=== PATIENT | female | born 1980 | race Caucasian/White ===

== ENCOUNTER 2018-08-24 01:04 | Outpatient (CLI) | payer MEDICAID, SELFPAY ==
[2018-08-24 11:02] LABS: Hemoglobin A1C 5.6 % (4.5-6.2)
[2018-08-24 11:13] LABS: TSH (W/Ref FT4) 0.02 uIU/mL (0.358-3.74)
[2018-08-24 11:42] LABS: FREE T4 1.44 ng/dL (0.76-1.46)
== END 2018-08-24 01:24 ==
PROVIDERS: PCP Family Medicine; Visit Provider Family Medicine
DX: E03.9 Hypothyroidism, unspecified (principal); E74.39 Other disorders of intestinal carbohydrate absorption
CPT/HCPCS: 36415; 83036; 84439; 84443

== ENCOUNTER 2019-01-31 09:53 | Emergency (ER) | payer OTHER, SELFPAY ==
[2019-01-31 09:58] VITALS: BP 135/82; PULSE 90; RESP 20; TEMP 37.2; O2SAT 94
--- NOTE | 2019-01-31 10:18 | DI.RAD_ITS ---
SYMPTOMS/DIAGNOSIS: PAIN, FELL 1 WK AGO, TENDER TO PALPATION DISTAL LATERAL FEMUR LEFT FEMUR: Four views. No acute fracture or dislocation is seen. The soft tissues are unremarkable. IMPRESSION: No acute abnormality. LEFT HIP AND PELVIS: Two views. No acute fracture or dislocation is seen. The sacroiliac joints and symphysis pubis appear intact. Post surgical changes seen are seen in the lumbosacral spine. The soft tissues are unremarkable. IMPRESSION: No acute abnormality.
--- NOTE | 2019-01-31 10:24 | ED.GENADUL_ITS ---
Discharge Plan Disposition Patient Disposition: HOME Discharge Details Chief Complaint: Orthopedic Clinical Impression: Muscle strain of left lower extremity, Fall due to ice or snow Primary Care Provider: Vickey Chandra ED Provider: John Solo Home Meds and New Rx's Prescriptions: Continued trazodone 100 mg tablet 100 mg PO HS Qty: 30 RF: 2 buspirone 15 mg tablet 7.5 mg PO BID Qty: 30 RF: 2 naproxen sodium [Aleve] 220 mg capsule 440 mg PO DAILY RF: 0 omeprazole 20 MG capsule,delayed release(DR/EC) 20 mg PO DAILY Qty: 90 RF: 3 fluticasone propion-salmeterol [Advair Diskus] 1 EACH blister with device 1 puff Inhalation BID Qty: 60 RF: 5 epinephrine 0.3 MG/SYR auto-injector 0.3 mg IJ DIRECTED Qty: 1 RF: 0 levothyroxine 75 mcg tablet 75 mcg PO .Daily except Monday Qty: 90 RF: 3 levothyroxine [Synthroid] 200 mcg tablet 200 mcg PO .Daily except Monday Qty: 90 RF: 3 norethindrone acetate 5 mg tablet 5 mg PO DAILY Qty: 60 RF: 5 Discharge Instructions Instructions: Muscle Strain (ED), Fall Prevention (ED) Additional Instructions: Please continue to take Aleve -dose according to label. Please take Tylenol over the counter - dose according to label. Please contact your primary care physician to arrange follow-up. It may be beneficial for you to be seen by physical therapy as referred by your PCP. Return to the ER for any worsening or new concerning symptoms. Referrals: Vickey Chandra [Primary Care Provider] - Medical Decision Making 10:30 --38-year-old female presents 1 week after mechanical slip and fall on ice with left thigh pain. She is tender along her lateral thigh and has pain with abduction, suspect IT band injury or hematoma. Consider femur fracture. --X-ray of pelvis, hip and femur left interpreted by radiology: Negative. Suspect IT band injury. Patient was given Wilfred wrap and crutches. She was encouraged to follow-up with her PCP and to continue with referral to PT therapy. Usual and customary discharge instructions were provided. HPI General Mode of arrival: ambulatory . Date/Time Provider Initiated Documentation: 01/31/19 10:03 . Limitations to Documentation: no limitations . Information obtained by: patient and family . HPI Narrative: 38-year-old female presents 1 week after mechanical slip and fall on ice with chief complaint of leg pain. Patient notes that she fell on her buttock and left side. Pain is been in her left thigh laterally. Pain is moderate to severe and worse with certain movements and ambulation. She has associated tingling in all of the toes of her left foot as well as some bruising of her anterior medial thigh. She denies bowel or bladder dysfunction. No back pain. Patient did hit her head during this fall, did not lose consciousness, has not had headache. She did see her primary care physician for this pain earlier this week and was diagnosed with muscle strain and was encouraged to splint her knee and take aleve. She has been taking aleve and pain persists. Related Data Home Medications Medication Instructions Recorded Confirmed omeprazole 20 mg PO DAILY #90 tab-cap 04/18/18 01/31/19 epinephrine 0.3 mg IJ DIRECTED #1 kit 05/22/18 01/31/19 fluticasone propion-salmeterol 1 puff INHALATION BID #60 disk 05/22/18 01/31/19 [Advair Diskus] naproxen sodium 220 mg capsule 440 mg PO DAILY cap 08/21/18 01/31/19 levothyroxine 200 mcg tablet 200 mcg PO .Daily except Monday08/31/18 01/31/19 #90 tab-cap levothyroxine 75 mcg tablet 75 mcg PO .Daily except Monday #90 08/31/18 01/31/19 tab-cap norethindrone acetate 5 mg tablet 5 mg PO DAILY #60 tab-cap 08/31/18 01/31/19 buspirone 15 mg tablet 7.5 mg PO BID #30 tab 12/25/18 01/31/19 trazodone 100 mg tablet 100 mg PO HS #30 tab 12/25/18 01/31/19 Previous Rx's Medication Instructions Recorded omeprazole 20 mg PO DAILY #90 tab-cap 04/18/18 epinephrine 0.3 mg IJ DIRECTED #1 kit 05/22/18 fluticasone propion-salmeterol 1 puff INHALATION BID #60 disk 05/22/18 [Advair Diskus] levothyroxine 200 mcg tablet 200 mcg PO .Daily except Monday08/31/18 #90 tab-cap levothyroxine 75 mcg tablet 75 mcg PO .Daily except Monday #90 08/31/18 tab-cap norethindrone acetate 5 mg tablet 5 mg PO DAILY #60 tab-cap 08/31/18 buspirone 15 mg tablet 7.5 mg PO BID #30 tab 12/25/18 trazodone 100 mg tablet 100 mg PO HS #30 tab 12/25/18 Allergies Allergy/AdvReac Type Severity Reaction Status Date / Time hornet venom Allergy Severe Anaphylaxsi Unverified 01/31/19 10:01 s Opioids - Morphine Analogues Allergy Severe hives Verified 01/31/19 10:01 aspirin Allergy Hives Unverified 01/31/19 10:01 hydrocodone bitartrate Allergy Skin Rash Unverified 01/31/19 10:01 [From Vicodin] General Stated Complaint: Orthopedic MADYSON: 3 Review of Systems Musculoskeletal Reports as per HPI Neurologic Reports as per HPI PFSH Medical History Chronic lumbar pain Depression Hypothyroidism Obese Tobacco use Urinary incontinence Surgical History Appendectomy Biopsy Cholecystectomy Dilation and curettage (05/27/05) Ligation of fallopian tube Oophrectomy, Right Spinal Fusion Family History Mother Personal history of malignant neoplasm Sister Personal history of malignant neoplasm Mental disorder Grandfather Diabetes Hyperlipidemia Grandmother Personal history of malignant neoplasm Father Personal history of malignant neoplasm Grandfather No problems noted. Grandmother No problems noted. 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 pets and animals: Yes pets and animals: cat(s) frequency: 1-2 times per week duration: 15-30 minutes/day Smoking and Tabacco status: Former Tobacco Use quit date: 03/30/18 pack-years: 15 Pasive smoking exposure: No alcohol intake: current alcohol intake frequency: holidays/special occasions only substance use type: does not use special viki needs: No Seatbelt use: always Helmet use: Yes helmet use: always Female Reproductive History Menstrual control method: permanent sterilization History History 4 Para Hx # Term Pregnancies 4 Multiple births Hx # Pregnancies Ectopic pregnancies AB induced Hx Number of Living Children AB spontaneous Exam Const General: cooperative and no acute distress HENMT Head: normocephalic and atraumatic Mouth: moist mucous membranes Eyes Conjunctivae: normal conjunctivae Sclera: normal sclerae EOM: EOM intact bilaterally Neck Neck: trachea midline and supple Resp Auscultation: clear to auscultation bilaterally, no rales, no rhonchi and no wheezes Cardio Jugular venous pressure: no JVD Rate: regular rate and not tachycardic Rhythm: regular rhythm GI Palpation: soft, not firm, no guarding, no masses, not rigid and nontender Back/Spine/Pelvis Thoracic/Lumbar Spine: No thoracic spinal tenderness and No lumbar spinal tenderness Skin General skin exam: no rashes or lesions noted Neuro General: alert, awake, oriented x3, tone normal and other (distal LLE sensation intact, no saddle anesth) Extrem General: no edema Left lower extremity: normal capillary refill, hip/thigh (ttp mid to distal thigh, dime sized bruise mid ant thigh) and knee Details: other (no effusion); no tenderness and no swelling; abnormal ROM (pain with hyperadduction) Course Vital Signs Temperature 37.2 C 01/31/19 09:58 Pulse 90 01/31/19 09:58 Respiratory Rate 20 01/31/19 09:58 Blood Pressure 135/82 01/31/19 09:58 Pulse Oximetry 94 L 01/31/19 09:58 Temperature 37.2 C 01/31/19 09:58 Temperature Source Tympanic 01/31/19 09:58 Pulse 90 01/31/19 09:58 Respiratory Rate 20 01/31/19 09:58 Respiratory Effort Non-Labored 01/31/19 09:58 Blood Pressure 135/82 01/31/19 09:58 Blood Pressure Position Sitting 01/31/19 09:58 Pulse Oximetry 94 L 01/31/19 09:58 Pain Level 9 01/31/19 10:01
[2019-01-31] MEDS: Acetaminophen 325 MG TAB (10:38)
[2019-01-31 11:23] VITALS: BP 135/82; PULSE 90; RESP 20; TEMP 37.2; O2SAT 94
== END 2019-01-31 11:24 | disposition home or self-care (01) ==
PROVIDERS: Emergency Provider Student in an Organized Health Care Education/Training Program; PCP Family Medicine
DX: S86.812A Strain of other muscle(s) and tendon(s) at lower leg level, left leg, initial encounter (principal); R20.2 Paresthesia of skin; W00.0XXA Fall on same level due to ice and snow, initial encounter
CPT/HCPCS: 73552; 99284; 73502; E0114

== ENCOUNTER 2020-01-17 02:41 | Outpatient (CLI) | payer SELFPAY ==
--- NOTE | 2020-01-17 07:45 | DI.CT_ITS ---
EXAM: CT HEAD WO CLINICAL HISTORY: headache for one week; frontal,r51. TECHNIQUE: Imaging Protocol: Axial computed tomography images with coronal and sagittal reformatted images were created and reviewed Noncontrast COMPARISON: No exams were available for comparison FINDINGS: Ventricles and Extra axial spaces: Normal in size and morphology for the patient's age. Hemorrhage: None. Cerebral parenchyma: Normal. Midline shift: None. Brainstem/Cerebellum: Normal. Calvarium: Normal. Visualized Paranasal sinuses/Mastoids: Clear. IMPRESSION: Normal CT of the head. RADIATION DOSE DELIVERED: DATA REPOSITORY: All CT scans at this facility are submitted to the National Radiology Data Registry (NRDR) Dose Index Registry (DIR) with the [employer] (A[employer]). RADIATION OPTIMIZATION: All CT scans at this facility use at least one of these dose optimization te chniques: automated exposure control; mA and/or kV adjustment per patient size (includes targeted exa ms where dose is matched to clinical indication); or iterative reconstruction.
== END 2020-01-17 03:01 ==
PROVIDERS: PCP Family Medicine; Visit Provider Family Medicine
DX: R51 Headache (principal)
CPT/HCPCS: 70450

== ENCOUNTER 2020-02-18 16:17 | Emergency (ER) | payer MEDICAID, SELFPAY ==
[2020-02-18 16:24] VITALS: BP 118/86; PULSE 87; RESP 20; TEMP 36.6; O2SAT 98
--- NOTE | 2020-02-18 16:50 | W.ED.GENAD ---
Discharge Plan Disposition Patient Disposition: HOME Condition: Stable Discharge Details Chief Complaint: RespSymp Clinical Impression: Cough Primary Care Provider: Vickey Chandra ED Provider: Gigi Hess Home Meds and New Rx's Prescriptions: Continued buspirone 15 mg tablet 7.5 mg PO BID Qty: 30 RF: 2 acetaminophen [Tylenol Arthritis Pain] 650 mg tablet extended release 1,300 mg PO BID-TID RF: 0 naproxen sodium [Aleve] 220 mg capsule 440 mg PO BID-TID RF: 0 epinephrine 0.3 MG/SYR auto-injector 0.3 mg IJ DIRECTED Qty: 1 RF: 0 omeprazole 20 mg capsule,delayed release(DR/EC) 20 mg PO DAILY Qty: 90 RF: 3 levothyroxine 75 mcg tablet 75 mcg PO .Daily except Monday Qty: 90 RF: 3 levothyroxine [Synthroid] 200 mcg tablet 200 mcg PO .Daily except Monday Qty: 90 RF: 3 Discharge Instructions Instructions: Acute Cough (ED) Additional Instructions: At this time he has been offered a medical screening examination here in the ER. No clear indication for antibiotic therapy. I have set you up for coronavirus testing tomorrow as an outpatient through our tent system. I have filled out the appropriate paperwork and they should be contacting you tomorrow for testing. Please follow their instructions. At this time you did not meet criteria for admission and will be discharged. Per CDC recommendations we recommend a 14-day quarantine, practicing good handwashing techniques, importance of wearing a mask at all times, and home monitoring and isolation. I recommend contacting your primary care provider by phone tomorrow to discuss outpatient options. Please watch for new or worsening symptoms and return to the ER, but we do ask that you call first as you are pending testing. 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 She has not reached out to her primary care provider. She is specifically requesting testing for the coronavirus. Although she has no recent travel or known exposure, the virus does appear to be community-based at this point. Given she is symptomatic, testing is reasonable. Our testing tent is currently closed, will set the patient up for testing tomorrow. All appropriate paperwork and orders placed. Patient is comfortable with this plan. Patient received her flu shot this year, is currently afebrile. Lungs are clear to auscultation. No clear indication for chest x-ray as pneumonia suspicion is extremely low. Patient comfortable not having a chest x-ray or being tested for the flu. We discussed the importance of handwashing, wearing a mask, self quarantine. A premade vail pending test stand-alone form was given. Patient had no additional questions or concerns. Medical Records Medical records reviewed: Yes I reviewed the patient's medical records. HPI General Mode of arrival: ambulatory. Date/Time Provider Initiated Documentation: 02/18/20 16:28. Limitations to Documentation: no limitations. Information obtained by: patient. HPI Narrative: This is a 39-year-old female who presents to the ER today requesting to be tested for the coronavirus. She has not had any recent travel or known sick contacts with anyone positive for the coronavirus. She reports approximately 1 hour history of body aches, subjective fever, chills, dry cough. She has a history of headaches, hypothyroidism, depression, chronic back pain. 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 She has not contacted her primary care provider. Related Data Home Medications Medication Instructions Recorded Confirmed epinephrine 0.3 mg IJ DIRECTED #1 kit 05/22/18 02/18/20 buspirone 15 mg tablet 7.5 mg PO BID #30 tab 12/25/18 02/18/20 omeprazole 20 mg capsule,delayed 20 mg PO DAILY #90 tab-cap 07/22/19 02/18/20 release levothyroxine 200 mcg tablet 200 mcg PO .Daily except Monday11/28/19 02/18/20 #90 tab-cap levothyroxine 75 mcg tablet 75 mcg PO .Daily except Monday #90 11/28/19 02/18/20 tab-cap acetaminophen 650 mg 1,300 mg PO BID-TID tab 12/24/19 02/18/20 tablet,extended release naproxen sodium 220 mg capsule 440 mg PO BID-TID cap 12/24/19 02/18/20 Previous Rx's Medication Instructions Recorded epinephrine 0.3 mg IJ DIRECTED #1 kit 05/22/18 buspirone 15 mg tablet 7.5 mg PO BID #30 tab 12/25/18 omeprazole 20 mg capsule,delayed 20 mg PO DAILY #90 tab-cap 07/22/19 release levothyroxine 200 mcg tablet 200 mcg PO .Daily except Monday11/28/19 #90 tab-cap levothyroxine 75 mcg tablet 75 mcg PO .Daily except Monday #90 11/28/19 tab-cap Allergies Allergy/AdvReac Type Severity Reaction Status Date / Time hornet venom Allergy Severe Anaphylaxsi Unverified 02/18/20 16:27 s Opioids - Morphine Analogues Allergy Severe hives Verified 02/18/20 16:27 aspirin Allergy Hives Unverified 02/18/20 16:27 hydrocodone bitartrate Allergy Skin Rash Unverified 02/18/20 16:27 [From Vicodin] General Stated Complaint: RespSymp MADYSON: 4 Review of Systems Constitutional Constitutional: Reports chills, Reports fever(s) (Subjective) and Reports headache(s) Eyes Eyes: Denies eye discharge ENT Ears, Nose, Mouth, and Throat: Reports headache(s), Reports nasal congestion and Denies sore throat Cardiovascular Cardiovascular: Denies chest pain and Denies dyspnea Respiratory Respiratory: Reports cough and Denies dyspnea Gastrointestinal Gastrointestinal: Denies abdominal pain, Denies nausea and Denies vomiting Genitourinary Genitourinary: Denies dysuria Musculoskeletal Musculoskeletal: Reports myalgias Integumentary/Breasts Skin/Breast: Denies rash Neurologic Neurologic: Reports headache(s) [facility] Medical History Chronic lumbar pain s/p L5-S1 surgery. recurrent sx. s/p [facility] [place] pain clinic eval. Oxycodone daily. Lyrica TID. Depression Hypothyroidism 14yo. On chronic replacement. Obese Tobacco use longstanding. has quit during pregnancies Urinary incontinence worse with coughing and sneezing. Surgical History Appendectomy 2005 Biopsy 05/27/05-left ovarian Cholecystectomy Dilation and curettage (05/27/05) Ligation of fallopian tube 2003 interval tubal. Oophrectomy, Right 2006 Dr Neves Spinal Fusion 2007 for slipped disk at [facility] [place] Family History Mother Personal history of malignant neoplasm ovarian CA Sister Personal history of malignant neoplasm uterine CA. S/P hysterectomy Mental disorder Grandfather Diabetes Hyperlipidemia Grandmother Personal history of malignant neoplasm breast CA Father Personal history of malignant neoplasm ORAL Grandfather No problems noted. Grandmother No problems noted. 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 Pets and animals: Yes Pets and animals: cat(s) Duration: 15-30 minutes/day Frequency: 1-2 times per week Special viki needs: No Seatbelt use: always Helmet use: Yes Helmet use: always Do you feel safe at home: Yes Do you feel safe in your relationship?: Yes Female Reproductive History Menstrual control method: permanent sterilization History History 4 Para Hx # Term Pregnancies 4 Multiple births Hx # Pregnancies Ectopic pregnancies AB induced Hx Number of Living Children AB spontaneous Exam Const General: cooperative, healthy appearing, comfortable and no acute distress Orientation: alert, awake and oriented x3 HENMT Head: normal to inspection, normocephalic and atraumatic Mouth: moist mucous membranes Throat: posterior oropharynx normal Eyes Conjunctivae: conjunctivae normal Neck Neck: normal visual inspection, trachea midline and supple Resp Effort & Inspection: normal respiratory effort, able to speak in complete sentences and cough Quality of cough: dry Auscultation: clear to auscultation bilaterally Cardio Rate: regular rate Rhythm: regular rhythm GI Palpation: soft and nontender Skin General skin exam: no rashes or lesions noted Neuro General: patient alert, patient awake, moves all extremities and no focal motor deficits Sensory Exam: no sensory deficits noted Psych Appearance: grossly normal Mental Status: mental status grossly normal Course Vital Signs Vital signs: Vital Signs Temperature 36.6 C 02/18/20 16:24 Pulse 87 02/18/20 16:24 Respiratory Rate 20 02/18/20 16:24 Blood Pressure 118/86 02/18/20 16:24 Pulse Oximetry 98 02/18/20 16:24 Temperature 36.6 C 02/18/20 16:24 Temperature Source Skin 02/18/20 16:24 Pulse 87 02/18/20 16:24 Respiratory Rate 20 02/18/20 16:24 Respiratory Effort Non-Labored 02/18/20 16:35 Respiratory Depth Normal 02/18/20 16:35 Blood Pressure 118/86 02/18/20 16:24 Blood Pressure Position Sitting 02/18/20 16:24 Pulse Oximetry 98 02/18/20 16:24 Oxygen Delivery Method Room Air 02/18/20 16:24 Oxygen Flow Rate 0 02/18/20 16:24 Pain Level 6 02/18/20 16:24
== END 2020-02-18 17:10 | disposition home or self-care (01) ==
PROVIDERS: Emergency Provider Physician Assistant; PCP Family Medicine
DX: R50.9 Fever, unspecified (principal); M79.10 Myalgia, unspecified site; R05 Cough
CPT/HCPCS: 99282; U0003

== ENCOUNTER 2020-02-19 08:45 | Outpatient (CLI) | payer MEDICAID, SELFPAY ==
[2020-02-20 16:45] LABS: COVID-19 RT-PCR Result Not Detected (NotDetected)
== END 2020-02-19 09:05 ==
PROVIDERS: PCP Family Medicine; Visit Provider Physician Assistant
DX: Z20.828 Contact with and (suspected) exposure to other viral communicable diseases (principal)
CPT/HCPCS: U0003

== ENCOUNTER 2020-07-04 01:29 | Emergency (ER) | payer MEDICAID, SELFPAY ==
--- NOTE | 2020-07-04 01:36 | ED.GENADUL_ITS ---
Discharge Plan Disposition Patient Disposition: HOME Condition: Stable Discharge Details Chief Complaint: DentalOral Clinical Impression: Dental infection Primary Care Provider: Vickey Chandra ED Provider: Charan [place] Meds and New Rx's Prescriptions: New prednisone 20 mg tablet 60 mg PO DAILY 4 Days Qty: 12 RF: 0 amoxicillin-pot clavulanate [Augmentin] 875-125 mg tablet 1 tab PO BID Qty: 14 RF: 0 Continued buspirone 15 mg tablet 7.5 mg PO BID Qty: 30 RF: 2 acetaminophen [Tylenol Arthritis Pain] 650 mg tablet extended release 1,300 mg PO BID-TID RF: 0 naproxen sodium [Aleve] 220 mg capsule 440 mg PO BID-TID RF: 0 epinephrine 0.3 MG/SYR auto-injector 0.3 mg IJ DIRECTED Qty: 1 RF: 0 omeprazole 20 mg capsule,delayed release(DR/EC) 20 mg PO DAILY Qty: 90 RF: 3 levothyroxine 75 mcg tablet 75 mcg PO .Daily except Monday Qty: 90 RF: 3 levothyroxine [Synthroid] 200 mcg tablet 200 mcg PO .Daily except Monday Qty: 90 RF: 3 naproxen sodium [Aleve] 220 mg Tablet 220 mg PO DAILY RF: 0 Discharge Instructions Instructions: Dental Abscess (ED) Additional Instructions: follow up with a dentist within 1-2 weeks if you have fevers, severe worsening pain or feel more ill return to the emergency department you can take 600mg ibuprofen and 1000mg tylenol every 6 hours for pain as needed Medical Decision Making 40 yo female comes in with one day of left upper mouth pain and swelling of the skin around left upper mouth. Denies fevers, dyspnea, vision changes and has no rashes. HAs numerous dental erosions on exam and pain with percussion to left upper molars, no visible draiable abscess at the bedside, no indication of ludwigs, rpa or other deep neck space infection on exam. Suspect dental infection due to poor dentition. Has no findings to suggest orbital cellulitis or periorbital cellulitis at this time, eomi without swelling around the eye. Will start on abx and advised to f/u with dentist, return precautions given Differential Diagnosis Differential Diagnosis: dental infection, abscess, sinusitis HPI General Mode of arrival: ambulatory . Date/Time Provider Initiated Documentation: 07/04/20 01:32 . Limitations to Documentation: no limitations . Information obtained by: patient . History of Present Illness 40 year old F presents to the emergency department with the chief complaint of left upper mouth pain/swelling, described as moderate, No relieving factors improve symptom(s), No exacerbating factors reported . Patient did receive the following treatments prior to arrival, none Related Data Home Medications Medication Instructions Recorded Confirmed epinephrine 0.3 mg IJ DIRECTED #1 kit 05/22/18 07/04/20 buspirone 15 mg tablet 7.5 mg PO BID #30 tab 12/25/18 07/04/20 omeprazole 20 mg capsule,delayed 20 mg PO DAILY #90 tab-cap 07/22/19 07/04/20 release levothyroxine 200 mcg tablet 200 mcg PO .Daily except Monday11/28/19 07/04/20 #90 tab-cap levothyroxine 75 mcg tablet 75 mcg PO .Daily except Monday #90 11/28/19 07/04/20 tab-cap acetaminophen 650 mg 1,300 mg PO BID-TID tab 12/24/19 07/04/20 tablet,extended release naproxen sodium 220 mg capsule 440 mg PO BID-TID cap 12/24/19 07/04/20 amoxicillin-pot clavulanate 1 tab PO BID #14 tab 07/04/20 [Augmentin] naproxen sodium [Aleve] 220 mg PO DAILY 07/04/20 07/04/20 prednisone 60 mg PO DAILY 4 Days #12 tab 07/04/20 Previous Rx's Medication Instructions Recorded epinephrine 0.3 mg IJ DIRECTED #1 kit 05/22/18 buspirone 15 mg tablet 7.5 mg PO BID #30 tab 12/25/18 omeprazole 20 mg capsule,delayed 20 mg PO DAILY #90 tab-cap 07/22/19 release levothyroxine 200 mcg tablet 200 mcg PO .Daily except Monday11/28/19 #90 tab-cap levothyroxine 75 mcg tablet 75 mcg PO .Daily except Monday #90 11/28/19 tab-cap amoxicillin-pot clavulanate 1 tab PO BID #14 tab 07/04/20 [Augmentin] prednisone 60 mg PO DAILY 4 Days #12 tab 07/04/20 Allergies Allergy/AdvReac Type Severity Reaction Status Date / Time hornet venom Allergy Severe Anaphylaxsi Unverified 07/04/20 01:35 s Opioids - Morphine Analogues Allergy Severe hives Verified 07/04/20 01:35 aspirin Allergy Hives Unverified 07/04/20 01:35 hydrocodone bitartrate Allergy Skin Rash Unverified 07/04/20 01:35 [From Vicodin] General MADYSON: 4 Review of Systems All systems reviewed & are unremarkable except as noted in HPI and below Constitutional Constitutional: Denies chills, Denies fever(s) and Denies weakness Cardiovascular Cardiovascular: Denies chest pain and Denies dyspnea Respiratory Respiratory: Denies cough and Denies dyspnea Gastrointestinal Gastrointestinal: Denies abdominal pain, Denies nausea and Denies vomiting Musculoskeletal Musculoskeletal: Denies joint swelling Neurologic Neurologic: Denies weakness Psychiatric Psychiatric: Denies depression [facility] Medical History (Updated 07/04/20 @ 01:37 by Charan Ren MD) Chronic lumbar pain s/p L5-S1 surgery. recurrent sx. s/p [facility] [place] pain clinic eval. Oxycodone daily. Lyrica TID. Depression GERD (gastroesophageal reflux disease) (Chronic) Hypothyroidism 14yo. On chronic replacement. Obese Tobacco use longstanding. has quit during pregnancies Urinary incontinence worse with coughing and sneezing. Surgical History Appendectomy 2005 Biopsy 05/27/05-left ovarian Cholecystectomy Dilation and curettage (05/27/05) Ligation of fallopian tube 2003 interval tubal. Oophrectomy, Right 2006 Dr Neves Spinal Fusion 2008 for slipped disk at [facility] [place] Family History Mother Personal history of malignant neoplasm ovarian CA Sister Personal history of malignant neoplasm uterine CA. S/P hysterectomy Mental disorder Grandfather Diabetes Hyperlipidemia Grandmother Personal history of malignant neoplasm breast CA Father Personal history of malignant neoplasm ORAL Grandfather No problems noted. Grandmother No problems noted. 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 and animals: Yes Pets and animals: cat(s) Duration: 15-30 minutes/day Frequency: 1-2 times per week Special viki needs: No Seatbelt use: always Helmet use: Yes Helmet use: always Do you feel safe at home: Yes Do you feel safe in your relationship?: Yes Female Reproductive History Menstrual control method: permanent sterilization History History 4 Para Hx # Term Pregnancies 4 Multiple births Hx # Pregnancies Ectopic pregnancies AB induced Hx Number of Living Children AB spontaneous Exam Const General: no acute distress Orientation: alert HENMT Head: normal to inspection Ears: external ears normal General nose exam: external nose normal Mouth: moist mucous membranes Eyes General: appearance normal, both eyes and all related structures Neck Neck: normal visual inspection Resp Effort & Inspection: normal respiratory effort and able to speak in complete sentences Cardio Rate: regular rate Skin General skin exam: no rashes or lesions noted Neuro General: patient alert and patient oriented x3 Extrem General: normal to inspection Psych Mental Status: mental status grossly normal
[2020-07-04 01:37] VITALS: BP 122/66; PULSE 82; RESP 20; TEMP 36.6; O2SAT 98
[2020-07-04] MEDS: Amoxicillin 875/Clav. 125 TAB PO (01:44)
[2020-07-04] MEDS: predniSONE 20 MG TAB 60 MG PO (01:44)
== END 2020-07-04 01:46 | disposition home or self-care (01) ==
LOC: ER 01:48
PROVIDERS: Emergency Provider Emergency Medicine; PCP Family Medicine
DX: R68.84 Jaw pain (principal); R22.0 Localized swelling, mass and lump, head; K04.7 Periapical abscess without sinus
CPT/HCPCS: 99283; J7512

== ENCOUNTER 2020-09-04 20:49 | Emergency (ER) | payer MEDICAID, SELFPAY ==
[2020-09-04 20:58] VITALS: BP 128/76; PULSE 92; RESP 18; TEMP 36.6; O2SAT 95
--- NOTE | 2020-09-04 21:00 | DI.RAD_ITS ---
EXAM: XR SHOULDER RT COMPLETE 2+V CLINICAL HISTORY: pain in AC joint and scapula after lifting pt. TECHNIQUE: 2D digital imaging was performed. COMPARISON: CR RIGHT SHOULDER COMPLETE from 05/09/2013 FINDINGS: BONES: No acute fracture is present. No bony destructive lesion is seen. JOINTS: No dislocation present. SOFT TISSUE: Normal. IMPRESSION: Unremarkable radiographs of the right shoulder. DATA REPOSITORY: RADIATION DOSE DELIVERED:
[2020-09-04] MEDS: Acetaminophen 500 MG TAB 1000 MG PO (21:17)
[2020-09-04] MEDS: Ketorolac 30 MG/ML VIAL IM (21:19)
[2020-09-04] MEDS: Lidocaine 5% Patch 1 PATCH TP (21:21)
--- NOTE | 2020-09-04 22:16 | W.ED.GENAD ---
Discharge Plan Disposition Patient Disposition: HOME Condition: Good Discharge Details Clinical Impression: Sprain of shoulder, right Primary Care Provider: Vickey Chandra ED Provider: Farooq Duffy Home Meds and New Rx's Prescriptions: Continued buspirone 15 mg tablet 7.5 mg PO BID Qty: 30 RF: 2 acetaminophen [Tylenol Arthritis Pain] 650 mg tablet extended release 1,300 mg PO BID-TID RF: 0 naproxen sodium [Aleve] 220 mg capsule 440 mg PO BID-TID RF: 0 epinephrine 0.3 MG/SYR auto-injector 0.3 mg IJ DIRECTED Qty: 1 RF: 0 omeprazole 20 mg capsule,delayed release(DR/EC) 20 mg PO DAILY Qty: 90 RF: 3 levothyroxine 75 mcg tablet 75 mcg PO .Daily except Monday Qty: 90 RF: 3 levothyroxine [Synthroid] 200 mcg tablet 200 mcg PO .Daily except Monday Qty: 90 RF: 3 naproxen sodium [Aleve] 220 mg Tablet 220 mg PO DAILY RF: 0 amoxicillin-pot clavulanate [Augmentin] 875-125 mg tablet 1 tab PO BID Qty: 14 RF: 0 Discharge Instructions Instructions: Shoulder Sprain (ED) Additional Instructions: At this time signs and symptoms are concerning for a notable sprain of your shoulder, as well as rotator cuff injury. It takes 6 weeks for the bursa inflammation to go down. Please take 1000 mg of Tylenol every 6 hours and 800 mg of ibuprofen every 6 hours. Ice the shoulder frequently. Use the shoulder sling as needed for comfort, but make sure to move your shoulder multiple times throughout the day to keep it from getting frozen. If you do not have improvement of your symptoms in the next few weeks he will require further evaluation by health communications specialist, your PCP, and potential further imaging including MRI. If you notice any worsening of your symptoms, or any new symptoms such as vomiting, diarrhea, fever, chills, shortness of breath, chest pain, numbness, weakness, or fainting , please return immediately to the emergency department for reevaluation. Please follow up with your primary care provider as soon as possible for reassessment and reevaluation. As always, it was a pleasure participating in your medical care today. Stand Alone Forms: Work Release Referrals: Chandra,Vickey J. [Primary Care Provider] - Medical Decision Making 40-year-old female who is right-hand dominant, presents today for evaluation of right shoulder pain. 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 There is no quick or jerking motion. She used her right arm to bring him down. This was 2 hours ago. About 30 to 45 minutes after that she developed notable pain in the right shoulder and right scapula, the pain would radiate down the bicep. Notably worsened with movement, improved by nothing. No associated numbness or tingling. No chest pain or shortness of breath. No history of cardiac disease. She came to the ER for further evaluation. She denies any history of previous injury to the right shoulder. No other complaints at this time. Exam demonstrates notable tenderness over the AC joint on the right shoulder as well as the supraspinatus muscle. Exam demonstrates notable tenderness with abduction, and external rotation, suspect rotator cuff injury and/or AC joint injury with bursal inflammation. Will give NSAIDs, Lidoderm patch, x-rays to rule out fracture although I feel this is unlikely. Monitor closely and reassess. 10:45 PM Patient's x-ray results have returned negative for acute process, I continue to suspect ligamentous injury. We will give her a sling for comfort. She is feeling better after NSAID treatment. Repeat neurologic exam stable. Signs and symptoms inconsistent with cardiac or neurovascular etiology and instead clinically consistent with musculoskeletal etiology. Recommend continued NSAIDs at home, decrease use of the arm for the next week and close follow-up with PCP. Discussed recommendations for follow-up with orthopedics if her symptoms do not improve with time, and the potential need for MRI imaging in the future. I have extensively reviewed the treatment plan and discharge instructions with the patient. I have addressed all patient concerns at this time. The patient was made aware of what symptoms to monitor for that would warrant a return to the emergency department. Discussed the plan with the patient, they demonstrate verbal understanding and agreement with our assessment and plan at this time. FINDINGS: Bones/joints: No fractures or dislocations. Soft tissues: Normal. IMPRESSION: No acute findings. Thank you for allowing us to participate in the care of your patient. Dictated and Authenticated by: Moe Soria MD 09/04/2020 10:43 PM Eastern Time ([place] & [place]) HPI General Date/Time Provider Initiated Documentation: 09/04/20 20:50. HPI Narrative: 40-year-old female who is right-hand dominant, presents today for evaluation of right shoulder pain. 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 There is no quick or jerking motion. She used her right arm to bring him down. This was 2 hours ago. About 30 to 45 minutes after that she developed notable pain in the right shoulder and right scapula, the pain would radiate down the bicep. Notably worsened with movement, improved by nothing. No associated numbness or tingling. No chest pain or shortness of breath. No history of cardiac disease. She came to the ER for further evaluation. She denies any history of previous injury to the right shoulder. No other complaints at this time. Related Data Home Medications Medication Instructions Recorded Confirmed epinephrine 0.3 mg IJ DIRECTED #1 kit 05/22/18 07/04/20 buspirone 15 mg tablet 7.5 mg PO BID #30 tab 12/25/18 07/04/20 omeprazole 20 mg capsule,delayed 20 mg PO DAILY #90 tab-cap 07/22/19 07/04/20 release levothyroxine 200 mcg tablet 200 mcg PO .Daily except Monday11/28/19 07/04/20 #90 tab-cap levothyroxine 75 mcg tablet 75 mcg PO .Daily except Monday #90 11/28/19 07/04/20 tab-cap acetaminophen 650 mg 1,300 mg PO BID-TID tab 12/24/19 07/04/20 tablet,extended release naproxen sodium 220 mg capsule 440 mg PO BID-TID cap 12/24/19 07/04/20 amoxicillin-pot clavulanate 1 tab PO BID #14 tab 07/04/20 [Augmentin] naproxen sodium [Aleve] 220 mg PO DAILY 07/04/20 07/04/20 Previous Rx's Medication Instructions Recorded epinephrine 0.3 mg IJ DIRECTED #1 kit 05/22/18 buspirone 15 mg tablet 7.5 mg PO BID #30 tab 12/25/18 omeprazole 20 mg capsule,delayed 20 mg PO DAILY #90 tab-cap 07/22/19 release levothyroxine 200 mcg tablet 200 mcg PO .Daily except Monday11/28/19 #90 tab-cap levothyroxine 75 mcg tablet 75 mcg PO .Daily except Monday #90 11/28/19 tab-cap amoxicillin-pot clavulanate 1 tab PO BID #14 tab 07/04/20 [Augmentin] Allergies Allergy/AdvReac Type Severity Reaction Status Date / Time hornet venom Allergy Severe Anaphylaxsi Unverified 09/04/20 22:15 s Opioids - Morphine Analogues Allergy Severe hives Verified 09/04/20 22:15 aspirin Allergy Hives Unverified 09/04/20 22:15 hydrocodone bitartrate Allergy Skin Rash Unverified 09/04/20 22:15 [From Vicodin] General Stated Complaint: Orthopedic MADYSON: 4 Review of Systems All systems reviewed & are unremarkable except as noted in HPI and below [facility] Medical History Chronic lumbar pain s/p L5-S1 surgery. recurrent sx. s/p [facility] pain clinic eval. Oxycodone daily. Lyrica TID. Depression GERD (gastroesophageal reflux disease) Hypothyroidism 14yo. On chronic replacement. Obese Tobacco use longstanding. has quit during pregnancies Urinary incontinence worse with coughing and sneezing. Surgical History Appendectomy 2005 Biopsy 05/27/05-left ovarian Cholecystectomy Dilation and curettage (05/27/05) Ligation of fallopian tube 2003 interval tubal. Oophrectomy, Right 2006 Dr Neves Spinal Fusion 2008 for slipped disk at [facility] Family History Mother Personal history of malignant neoplasm ovarian CA Sister Personal history of malignant neoplasm uterine CA. S/P hysterectomy Mental disorder Grandfather Diabetes Hyperlipidemia Grandmother Personal history of malignant neoplasm breast CA Father Personal history of malignant neoplasm ORAL Grandfather No problems noted. Grandmother No problems noted. 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 and animals: Yes Pets and animals: cat(s) Duration: 15-30 minutes/day Frequency: 1-2 times per week Special viki needs: No Seatbelt use: always Helmet use: Yes Helmet use: always Do you feel safe at home: Yes Do you feel safe in your relationship?: Yes Female Reproductive History Menstrual control method: permanent sterilization History History 4 Para Hx # Term Pregnancies 4 Multiple births Hx # Pregnancies Ectopic pregnancies AB induced Hx Number of Living Children AB spontaneous Exam Narrative Exam Narrative: 1.Const: Well-nourished, Well-developed, appearing stated age 2.Eyes: PERRL, no conjunctival injection, and symmetrical lids. 3.ENT: Atraumatic external nose and ears. Moist MM. Neck: Symmetric, trachea midline, No thyromegaly. 4.CVS: +S1/S2, No murmurs or gallops. Peripheral pulses 2+ and equal in all extremities. Brisk capillary refill in all extremities. 5.RESP: Unlabored respiratory effort. Clear to auscultation bilaterally. No wheezes rales or rhonchi 6.GI: Soft, Nontender/Nondistended, No hepatosplenomegaly. No guarding or rebound. 7.MSK: Normocephalic/Atraumatic, Extremities w/o deformity. No cyanosis or clubbing. Right shoulder demonstrates mild reproducible tenderness over the AC joint primarily as well as supraspinatus. Exam demonstrates near severe tenderness with abduction, and external rotation, mild tenderness with anterior posterior movement and internal rotation. Sensation intact throughout, two-point discrimination intact throughout. +2 radial pulses bilaterally. No evidence of dislocation. 8.Skin: Warm, Dry. No rashes or lesions. 9.Neuro: correctional casework specialist II-XII grossly intact. Sensation grossly intact, no focal neurologic deficits. 10.Psych: (AAO) x3. Appropriate mood and affect Course Vital Signs Vital signs: Vital Signs Temperature 36.6 C 09/04/20 20:58 Pulse 92 H 09/04/20 20:58 Respiratory Rate 18 09/04/20 20:58 Blood Pressure 128/76 09/04/20 20:58 Pulse Oximetry 95 09/04/20 20:58 Temperature 36.6 C 09/04/20 20:58 Temperature Source Temporal Artery Scan 09/04/20 20:58 Pulse 92 H 09/04/20 20:58 Respiratory Rate 18 09/04/20 20:58 Respiratory Effort Non-Labored 09/04/20 21:02 Blood Pressure 128/76 09/04/20 20:58 Blood Pressure Position Sitting 09/04/20 20:58 Pulse Oximetry 95 09/04/20 20:58 Oxygen Delivery Method Room Air 09/04/20 20:58 Oxygen Flow Rate 0 09/04/20 20:58 Pain Level 8 09/04/20 21:19
--- NOTE | 2020-09-10 16:03 | DI.VRAD_ITS ---
PROCEDURE INFORMATION: Exam: XR Right Shoulder Exam date and time: 09/04/2020 10:17 PM Age: 40 years old Clinical indication: Other: Pain in ac joint and scapula after lifting PT TECHNIQUE: Imaging protocol: XR Right shoulder. Views: 2 or more views. COMPARISON: No relevant prior studies available. FINDINGS: Bones/joints: No fractures or dislocations. Soft tissues: Normal. IMPRESSION: No acute findings. Dictated and Authenticated by: Moe Soria MD. Ordering:CATINA Trivedi MD
== END 2020-09-04 22:50 | disposition home or self-care (01) ==
PROVIDERS: Emergency Provider Student in an Organized Health Care Education/Training Program; PCP Family Medicine
DX: S43.491A Other sprain of right shoulder joint, initial encounter (principal); S43.421A Sprain of right rotator cuff capsule, initial encounter; X50.0XXA Overexertion from strenuous movement or load, initial encounter; Y99.0 Civilian activity done for income or pay
CPT/HCPCS: 96372; 99284; 73030; 99285; J1885; L3650

== ENCOUNTER 2020-09-15 10:51 | Outpatient (CLI) | payer MEDICAID, SELFPAY ==
[2020-09-15 13:05] LABS: TSH (W/Ref FT4) 3.16 uIU/mL (0.36-3.74)
== END 2020-09-15 11:11 ==
PROVIDERS: PCP Family Medicine; Visit Provider Family Medicine
DX: E03.9 Hypothyroidism, unspecified (principal)
CPT/HCPCS: 36415; 84443

== ENCOUNTER 2020-10-20 13:00 | Outpatient (REF) | payer MEDICAID, SELFPAY ==
[2020-10-20 13:48] LABS: Abs Immature Grans 0.03 10^3/uL (0.0-0.06); Absolute Basophil Count 0.05 10^3/uL (0.0-0.2); Absolute Eosinophil Count 0.14 10^3/uL (0.0-0.7); Absolute Lymphocyte Count 2.66 10^3/uL (1.2-3.4); Absolute Monocyte Count 0.48 10^3/uL (0.1-0.8); Absolute Neutrophil Count 4.08 10^3/uL (1.2-6.7); Basophils % 0.7; Eosinophils % 1.9; HCT 39.7 % (36.0-46.0); HGB 13.4 g/dL (11.2-15.7); Immature Grans % 0.4; Lymphocytes % 35.8; MCH 32.1 pg (27.0-33.0); MCHC 33.8 % (32.0-36.0); MCV 95.2 fL (80-95); MPV 10.1 fL (8.0-11.0); Monocytes % 6.5; Neutrophils % 54.7; Nucleated RBC 0 %; Platelet Count 340 10^3/uL (130-400); RBC 4.17 10^6/uL (3.93-5.22); RDW 11.9 % (11.7-14.6); RDW-SD 41.5 fL; WBC 7.44 10^3/uL (4.4-10.8)
[2020-10-20 14:10] LABS: Anion Gap 6.8 mmol/L (3-11); BUN 11 mg/dL (7-18); CO2 26.2 mmol/L (21.0-32.0); CREATININE 0.81 mg/dL (0.55-1.02); Calcium 8.5 mg/dL (8.5-10.1); Chloride 105 mmol/L (98-107); Glucose 82 mg/dL (74-106); Potassium 4.2 mmol/L (3.5-5.1); Sodium 138 mmol/L (136-145)
== END 2020-10-20 13:20 ==
LOC: LBN 13:00
PROVIDERS: PCP Family Medicine; Visit Provider Nurse Practitioner Family
DX: R10.9 Unspecified abdominal pain (principal)
CPT/HCPCS: 80048; 85025

== ENCOUNTER 2020-10-21 15:52 | Outpatient (REF) | payer MEDICAID, SELFPAY ==
[2020-10-21 17:13] LABS: C Diff PCR Negative (Negative)
== END 2020-10-21 16:12 ==
LOC: LBN 15:52
PROVIDERS: PCP Family Medicine; Visit Provider Nurse Practitioner Family
DX: R10.9 Unspecified abdominal pain (principal)
CPT/HCPCS: 87493; 87177

== ENCOUNTER 2020-10-26 01:27 | Outpatient (CLI) | payer MEDICAID, SELFPAY ==
--- NOTE | 2020-10-26 07:00 | DI.US_ITS ---
EXAM: US ABDOMEN CLINICAL HISTORY: abdominal pain, nausea and vomiting,R10.9 TECHNIQUE: Ultrasound abdomen performed using standard protocol. COMPARISON: CT CHEST FOR PULMONARY EMBOLUS from 05/13/2018 FINDINGS: ABDOMINAL AORTA AND IVC: Visualized portions normal caliber. There is no ascites. Liver size is upper normal. The liver is mildly hyperechoic indicating an element of steatosis but t here are no discrete focal hepatic lesions identified. The gallbladder surgically absent. Common he patic duct is not dilated, measuring 4 millimeters. Pancreas appears unremarkable. The spleen is no t enlarged. Both kidneys appear unremarkable. IMPRESSION: The gallbladder surgically absent. The biliary tree is not dilated. Liver is noted to be mildly hyperechoic indicating an element of steatosis. No obvious discrete foca l hepatic lesions evident. There is no ascites DATA REPOSITORY:
== END 2020-10-26 01:47 ==
PROVIDERS: PCP Family Medicine; Visit Provider Nurse Practitioner Family
DX: R10.9 Unspecified abdominal pain (principal); R11.2 Nausea with vomiting, unspecified; K76.0 Fatty (change of) liver, not elsewhere classified
CPT/HCPCS: 76700

== ENCOUNTER 2021-01-06 14:06 | Outpatient (REF) | payer MEDICAID, SELFPAY | END 2021-01-06 14:07 | disposition home or self-care (01) | LOC: LBN 14:06 | PROVIDERS: PCP Family Medicine; Visit Provider Family Medicine | DX: R35.0 Frequency of micturition (principal) | CPT/HCPCS: 87077; 87086; 87186 ==

== ENCOUNTER 2021-01-22 21:12 | Outpatient (REF) | payer MEDICAID, SELFPAY ==
[2021-01-22 21:25] LABS: Bilirubin Negative (Negative); Blood Negative (Negative); Clarity Clear (Clear); Glucose Negative (Negative); Ketones Negative (Negative); Leukocyte Esterase Small (Negative); Nitrite Negative (Negative); Urobilinogen 0.2 EU/dL (Up TO 0.2)
[2021-01-22 21:30] LABS: Bacteria Few HPF (Negative); C & S Indicated? Yes; Casts Negative LPF (Negative); Crystals Negative HPF (Negative); Epithelial Cells Few HPF (Negative); Mucus Negative (Negative); RBC Negative HPF (0-2)
== END 2021-01-22 21:13 | disposition home or self-care (01) ==
LOC: LBN 21:12
PROVIDERS: PCP Family Medicine
DX: N89.8 Other specified noninflammatory disorders of vagina (principal); R30.0 Dysuria
CPT/HCPCS: 81003; 81015; 87086; 87480; 87510; 87660

== ENCOUNTER 2021-07-15 19:32 | Emergency (ER) | payer MEDICAID, SELFPAY ==
[2021-07-15 19:43] VITALS: BP 126/86; PULSE 83; RESP 18; TEMP 36.8; O2SAT 97
--- NOTE | 2021-07-15 20:00 | DI.RAD_ITS ---
Exam(s) XR PELVIS AP EXAM: XR PELVIS AP CLINICAL HISTORY: trauma. TECHNIQUE: 2D digital imaging was performed. COMPARISON: No exams were available for comparison FINDINGS: BONES: No acute fracture is present. No bony destructive lesion is seen. JOINTS: No dislocation present. No joint space narrowing is present. Postsurgical changes at L5-S1. SOFT TISSUE: Normal. IMPRESSION: No acute fracture or dislocation. DATA REPOSITORY: RADIATION DOSE DELIVERED:
--- NOTE | 2021-07-15 20:00 | DI.RAD_ITS ---
Exam(s) XR LUMBAR SPINE AP, LAT EXAM: XR LUMBAR SPINE AP, LAT CLINICAL HISTORY: trauma. TECHNIQUE: 2D digital imaging was performed. COMPARISON: CR CHEST 2 VIEWS PA,LAT from 05/13/2018 FINDINGS: BONES: No fracture or destructive lesion. Vertebral bodies are unremarkable. No facet hypertrophy ethel ntified. DISKS: Intervertebral disc spaces are maintained. L5-S1 fusion. ALIGNMENT: Lumbar spinal alignment is within normal limits. SOFT TISSUE: Normal. IMPRESSION: No acute fracture or subluxation. DATA REPOSITORY: RADIATION DOSE DELIVERED:
--- NOTE | 2021-07-15 20:00 | DI.RAD_ITS ---
Exam(s) XR SACRUM COCCYX EXAM: XR SACRUM COCCYX CLINICAL HISTORY: trauma. TECHNIQUE: 2D digital imaging was performed. COMPARISON: No exams were available for comparison FINDINGS: BONES: No acute fracture is present. No bony destructive lesion is seen. JOINTS: No dislocation present. L5-S1 fusion. SOFT TISSUE: Normal. IMPRESSION: No acute fracture. DATA REPOSITORY: RADIATION DOSE DELIVERED:
--- NOTE | 2021-07-15 20:03 | ED.GENADUL_ITS ---
Discharge Plan Disposition Patient Disposition: HOME Condition: Good Discharge Details Clinical Impression: Coccygeal contusion, Fall Primary Care Provider: Vickey Chandra ED Provider: Marvin Guevara Home Meds and New Rx's Prescriptions: New acetaminophen 500 mg tablet 1,000 mg PO .q6-8h PRNQty: 60 RF: 0 ibuprofen 600 mg tablet 600 mg PO Q8H PRNQty: 20 RF: 0 Continued buspirone 15 mg tablet 7.5 mg PO BID Qty: 90 RF: 3 levothyroxine 75 mcg tablet 75 mcg PO .Daily except Monday Qty: 90 RF: 3 levothyroxine [Synthroid] 200 mcg tablet 200 mcg PO .Daily except Monday Qty: 90 RF: 3 epinephrine 0.3 MG/SYR auto-injector 0.3 mg IJ DIRECTED Qty: 1 RF: 0 omeprazole 40 mg capsule,delayed release(DR/EC) 40 mg PO DAILY Qty: 90 RF: 3 Discontinued acetaminophen [Tylenol Arthritis Pain] 650 mg tablet extended release 1,300 mg PO BID-TID RF: 0 ondansetron HCl [Zofran] 4 mg tablet 4 mg PO Q6H PRN (Reason: nausea and vomiting) Qty: 10 RF: 0 Discharge Instructions Instructions: Contusion in Adults (ED) Additional Instructions: No fracture seen on x-ray. Would obtain a donut cushion to sit on for comfort over the next couple of weeks. Ice on and off for the next couple of days. Alternate acetaminophen with ibuprofen as we discussed. Follow-up with primary care 1 to 2 weeks if not improving. Return to ED if any neurologic changes, bladder or bowel dysfunction, or other concerns. Referrals: Vickey Chandra [Primary Care Provider] - [facility] General Mode of arrival: ambulatory . Date/Time Provider Initiated Documentation: 07/15/21 19:33 . Limitations to Documentation: no limitations . Information obtained by: patient and RN notes reviewed . Related Data Home Medications Medication Instructions Recorded Confirmed epinephrine 0.3 mg IJ DIRECTED #1 kit 05/22/18 07/15/21 omeprazole 40 mg capsule,delayed 40 mg PO DAILY #90 cap 12/21/20 07/15/21 release buspirone 15 mg tablet 7.5 mg PO BID #90 tab 01/06/21 01/21/21 levothyroxine 200 mcg tablet 200 mcg PO .Daily except Monday01/06/21 07/15/21 #90 tab-cap levothyroxine 75 mcg tablet 75 mcg PO .Daily except Monday #90 01/06/21 07/15/21 tab-cap acetaminophen 1,000 mg PO .q6-8h PRN #60 tab 07/15/21 ibuprofen 600 mg PO Q8H PRN #20 tab 07/15/21 Previous Rx's Medication Instructions Recorded epinephrine 0.3 mg IJ DIRECTED #1 kit 05/22/18 omeprazole 40 mg capsule,delayed 40 mg PO DAILY #90 cap 12/21/20 release buspirone 15 mg tablet 7.5 mg PO BID #90 tab 01/06/21 levothyroxine 200 mcg tablet 200 mcg PO .Daily except Monday01/06/21 #90 tab-cap levothyroxine 75 mcg tablet 75 mcg PO .Daily except Monday #90 01/06/21 tab-cap acetaminophen 1,000 mg PO .q6-8h PRN #60 tab 07/15/21 ibuprofen 600 mg PO Q8H PRN #20 tab 07/15/21 Allergies Allergy/AdvReac Type Severity Reaction Status Date / Time hornet venom Allergy Severe Anaphylaxsi Verified 07/15/21 19:46 s Opioids - Morphine Analogues Allergy Severe hives Verified 07/15/21 19:46 aspirin Allergy Hives Verified 07/15/21 19:46 hydrocodone bitartrate Allergy Skin Rash Verified 07/15/21 19:46 [From Vicodin] metronidazole AdvReac Intermediate Itchy rash Verified 07/15/21 19:46 on her neck, nausea and fatigue General Stated Complaint: Trauma MADYSON: 4 [facility] Medical History Chronic lumbar pain s/p L5-S1 surgery. recurrent sx. s/p [facility] [place] pain clinic eval. Oxycodone daily. Lyrica TID. Depression GERD (gastroesophageal reflux disease) Hypothyroidism 14yo. On chronic replacement. Obese Tobacco use longstanding. has quit during pregnancies Urinary incontinence worse with coughing and sneezing. Vaginitis Surgical History Appendectomy 2005 Biopsy 05/27/05-left ovarian Cholecystectomy Dilation and curettage (05/27/05) Ligation of fallopian tube 2003 interval tubal. Oophrectomy, Right 2006 Dr Neves Spinal Fusion 2008 for slipped disk at [facility] [place] Family History Mother Personal history of malignant neoplasm ovarian CA Sister Personal history of malignant neoplasm uterine CA. S/P hysterectomy Mental disorder Grandfather Diabetes Hyperlipidemia Grandmother Personal history of malignant neoplasm breast CA Father Personal history of malignant neoplasm ORAL Grandfather No problems noted. Grandmother No problems noted. 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 and animals: Yes Pets and animals: cat(s) Duration: 15-30 minutes/day Frequency: 1-2 times per week Special viki needs: No Seatbelt use: always Helmet use: Yes Helmet use: always Do you feel safe at home: Yes Do you feel safe in your relationship?: Yes Female Reproductive History Menstrual control method: permanent sterilization History History 4 Para Hx # Term Pregnancies 4 Multiple births Hx # Pregnancies Ectopic pregnancies AB induced Hx Number of Living Children AB spontaneous Course Vital Signs Vital signs: Vital Signs Temperature 98.2 F 07/15/21 19:43 Pulse 83 07/15/21 19:43 Respiratory Rate 18 07/15/21 19:43 Blood Pressure 126/86 07/15/21 19:43 Pulse Oximetry 97 07/15/21 19:43 Temperature 98.2 F 07/15/21 19:43 Pulse 83 07/15/21 19:43 Respiratory Rate 18 07/15/21 19:43 Respiratory Effort Non-Labored 07/15/21 19:47 Blood Pressure 126/86 07/15/21 19:43 Pulse Oximetry 97 07/15/21 19:43 Pain Level 9 07/15/21 19:43
[2021-07-15] MEDS: Ketorolac 60 MG/2 ML VIAL IM (20:14)
--- NOTE | 2021-07-15 21:06 | DI.VRAD_ITS ---
PROCEDURE INFORMATION: Exam: XR Lumbosacral Spine Exam date and time: 07/15/2021 8:11 PM Age: 41 years old Clinical indication: Other: Trauma; Prior surgery; Surgery date: 6+ months; Surgery type: L5-s1 fusion 2007 TECHNIQUE: Imaging protocol: XR of the lumbosacral spine. Views: 2 or 3 views. COMPARISON: XR SACRUM COCCYX 07/15/2021 8:35 PM FINDINGS: Bones/joints: Postsurgical changes of posterior fusion with disc spacer at L5-S1. No evidence for hardware complication. Alignment is anatomic. No evidence for a compression defomity. The disc spaces are maintained. Soft tissues: Unremarkable. IMPRESSION: Postsurgical changes of L5-S1 fusion. No evidence for hardware complication. Dictated and Authenticated by: Carlos Benitez MD. Ordering:DOLORES Wong MD
--- NOTE | 2021-07-15 21:06 | DI.VRAD_ITS ---
PROCEDURE INFORMATION: Exam: XR Sacrum and Coccyx, 2 or More Views Exam date and time: 07/15/2021 8:11 PM Age: 41 years old Clinical indication: Other: Trauma; Prior surgery; Surgery date: 6+ months; Surgery type: L5-s1 fusion 2007 TECHNIQUE: Imaging protocol: XR of the sacrum and coccyx, 2 or more views. COMPARISON: CR XR PELVIS AP 07/15/2021 8:34 PM FINDINGS: Bones/joints: Postsurgical changes of posterior fusion with disc spacer at L5-S1. No evidence for hardware complication. No evidence for a fracture. Soft tissues: Normal. IMPRESSION: Postsurgical changes of L5-S1 fusion without evidence for complication. Dictated and Authenticated by: Carlos Benitez MD. Ordering:DOLORES Wong MD
--- NOTE | 2021-07-15 21:08 | DI.VRAD_ITS ---
PROCEDURE INFORMATION: Exam: XR Pelvis Exam date and time: 07/15/2021 8:11 PM Age: 41 years old Clinical indication: Other: Trauma TECHNIQUE: Imaging protocol: XR pelvis. Views: 1 or 2 view. COMPARISON: CR XR hip LT complete AP pelvis 01/31/2019 10:36 AM FINDINGS: Bones/joints: No acute fracture. Alignment is anatomic. The joint spaces are preserved. There are postsurgical changes of L5-S1 fusion. Soft tissues: Unremarkable. IMPRESSION: No acute findings. Dictated and Authenticated by: Carlos Benitez MD. Ordering:DOLORES Wong MD
== END 2021-07-15 21:26 | disposition home or self-care (01) ==
PROVIDERS: Emergency Provider Emergency Medicine; PCP Family Medicine
DX: S30.0XXA Contusion of lower back and pelvis, initial encounter (principal); M54.5 Low back pain; W10.8XXA Fall (on) (from) other stairs and steps, initial encounter
CPT/HCPCS: 96372; 99284; 72100; 72170; 72220; 99281; J1885

== ENCOUNTER 2021-08-04 19:12 | Emergency (ER) | payer OTHER, SELFPAY ==
--- NOTE | 2021-08-04 19:15 | DI.RAD_ITS ---
Exam(s) XR HAND RT COMPLETE EXAM: XR HAND RT COMPLETE CLINICAL HISTORY: pain s/p branch falling on her hand. TECHNIQUE: 2D digital imaging was performed. COMPARISON: No exams were available for comparison FINDINGS: There is no evidence of fracture or dislocation. No radiopaque foreign body. No osseous lesions IMPRESSION: No significant radiographic findings. DATA REPOSITORY: RADIATION DOSE DELIVERED:
[2021-08-04 19:16] VITALS: BP 122/53; PULSE 90; RESP 18; TEMP 36.7; O2SAT 100
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
--- NOTE | 2021-08-04 20:11 | DI.VRAD_ITS ---
PROCEDURE INFORMATION: Exam: XR Right Hand Exam date and time: 08/04/2021 7:27 PM Age: 41 years old Clinical indication: Injury or trauma; Other: Tree branch fell on her hand; Blunt trauma (contusions or hematomas); Right TECHNIQUE: Imaging protocol: XR Right hand. Views: 3 or more views. COMPARISON: No relevant prior studies available. FINDINGS: Bones/joints: No fracture. No malalignment. Soft tissues: Normal. IMPRESSION: No acute findings. Dictated and Authenticated by: Desean Ocampo MD. Ordering:ENRRIQUE Farrra MD
== END 2021-08-04 20:36 | disposition home or self-care (01) ==
PROVIDERS: Emergency Provider Emergency Medicine; PCP Family Medicine
DX: S60.221A Contusion of right hand, initial encounter (principal); W20.8XXA Other cause of strike by thrown, projected or falling object, initial encounter
CPT/HCPCS: 29125; 99283; 73130

== ENCOUNTER 2021-09-10 00:40 | Outpatient (CLI) | payer MEDICAID, SELFPAY ==
--- NOTE | 2021-09-10 06:30 | DI.RAD_ITS ---
Exam(s) XR WRIST RT COMPL NAVICULAR EXAM: XR WRIST RT COMPL NAVICULAR CLINICAL HISTORY: persistent pain,CONTUSION,S60.221A. TECHNIQUE: 2D digital imaging was performed. COMPARISON: No exams were available for comparison FINDINGS: BONES: No acute fracture is present. No bony destructive lesion is seen. JOINTS: The carpal bones are normally aligned. SOFT TISSUE: Normal. IMPRESSION: Unremarkable radiographs of the right wrist. DATA REPOSITORY: RADIATION DOSE DELIVERED:
== END 2021-09-10 01:00 ==
PROVIDERS: PCP Family Medicine; Visit Provider Emergency Medicine
DX: M25.531 Pain in right wrist (principal); S60.221A Contusion of right hand, initial encounter; M79.641 Pain in right hand
CPT/HCPCS: 73110

== ENCOUNTER 2021-09-14 13:28 | Outpatient (CLI) | payer MEDICAID, SELFPAY ==
--- NOTE | 2021-09-14 13:00 | DI.RAD_ITS ---
Exam(s) XR WRIST RT COMPL NAVICULAR EXAM: XR WRIST RT COMPL NAVICULAR CLINICAL HISTORY: R wrist injury. TECHNIQUE: 2D digital imaging was performed of the right wrist. Seven views were obtained. Scaphoid , PA, lateral and oblique views were obtained. COMPARISON: CR XR WRIST RT COMPL NAVICULAR from 09/10/2021 FINDINGS: BONES: No acute fracture is present. No bony destructive lesion is seen. JOINTS: The carpal bones are normally aligned. SOFT TISSUE: Normal. IMPRESSION: Unremarkable radiographs of the right wrist. DATA REPOSITORY: RADIATION DOSE DELIVERED:
== END 2021-09-14 13:29 | disposition home or self-care (01) ==
LOC: DIORS 13:29
PROVIDERS: PCP Family Medicine; Visit Provider Physician Assistant
DX: S69.81XA Other specified injuries of right wrist, hand and finger(s), initial encounter
CPT/HCPCS: 73110

== ENCOUNTER 2021-12-07 01:16 | Outpatient (CLI) | payer OTHER, SELFPAY ==
--- NOTE | 2021-12-07 13:40 | DI.MRI_ITS ---
Exam(s) MR UPPER JOINT RT WO EXAM: MR UPPER JOINT RT WO CLINICAL HISTORY: ? SCAPHOID FX,contusion rt hand,work related injury,s60.221a,y99.0. TECHNIQUE: Multiplanar multisequence MRI was performed. COMPARISON: No exams were available for comparison FINDINGS: MR examination of the wrist was performed according to the usual protocol. There is no focal bony signal abnormality seen. There is no evidence of fracture. Carpal alignment appears within normal limits. There are a group of small cysts which lie adjacent to the distal pole of the navicular on its dorsal aspect, these have the appearance of ganglion cysts. Largest cyst measures roughly 10 x 5 millimete rs in diameter and is septated. No significant tendinous signal abnormality is identified involving the flexor or extensor tendons. No ligamentous injury seen. The TFCC structures appear grossly intact. IMPRESSION: Small dorsal ganglion cysts seen adjacent to navicular bone. No evidence of navicular fracture. DATA REPOSITORY:
== END 2021-12-07 01:36 ==
PROVIDERS: PCP Family Medicine; Visit Provider Physician Assistant
DX: S60.221A Contusion of right hand, initial encounter (principal); Y99.0 Civilian activity done for income or pay; M67.441 Ganglion, right hand
CPT/HCPCS: 73221

== ENCOUNTER 2022-01-17 15:47 | Outpatient (REF) | payer MEDICAID, SELFPAY ==
[2022-01-17 16:03] LABS: Source Nasal/Nares
[2022-01-17 16:59] LABS: COVID-19 PCR Negative (Negative)
== END 2022-01-17 15:48 | disposition home or self-care (01) ==
LOC: LBN 15:47
PROVIDERS: PCP Family Medicine; Visit Provider Student in an Organized Health Care Education/Training Program
DX: Z20.822 Contact with and (suspected) exposure to COVID-19 (principal); Z01.818 Encounter for other preprocedural examination
CPT/HCPCS: 87635

== ENCOUNTER 2022-01-18 07:09 | Day surgery (SDC) | payer OTHER, SELFPAY ==
[2022-01-18 07:28] VITALS: BP 133/81; PULSE 86; RESP 18; TEMP 36.6; O2SAT 96
--- NOTE | 2022-01-18 07:47 | PDOC.DSDIS_ITS ---
Discharge Plan Disposition Patient Disposition: HOME Condition: Good Discharge Details Reason For Visit: Excision Ganglion Cyst R Wrist Attending Provider: Dion Vargas Primary Care Provider: Vickey Chandra Home Meds and New Rx's Prescriptions: New acetaminophen 500 mg tablet 1,000 mg PO TID Qty: 90 0RF ibuprofen 600 mg tablet 600 mg PO TID PRN (Reason: pain) Qty: 90 0RF Continued levothyroxine 75 mcg tablet 75 mcg PO .Daily except Monday Qty: 90 3RF levothyroxine [Synthroid] 200 mcg tablet 200 mcg PO .Daily except Monday Qty: 90 3RF Rx Instructions: take daily along with 75mcg tablet. epinephrine 0.3 mg/0.3 mL auto-injector 0.3 mg IJ DIRECTED Qty: 1 0RF Rx Instructions: Administed as directed on label for severe allergic reaction omeprazole 40 mg capsule,delayed release(DR/EC) 40 mg PO DAILY Qty: 90 3RF Discontinued acetaminophen 500 mg tablet 1,000 mg PO .q6-8h PRNQty: 60 0RF ibuprofen 600 mg tablet 600 mg PO Q8H PRNQty: 20 0RF Discharge Instructions Additional Instructions: Ganglion Cyst Excision Instructions: Activity: You should keep the hand/wrist elevated as much as possible for the first few days. You may use the other fingers as tolerated but avoid trying to do too much too soon. You may perform light activities with the splint in place. Dressing: Your splint should stay in place at all times. Do NOT get it wet. You may loosen the LAYLA wrap if you feel it is too tight and then rewrap more loosely. Medications: - You should take Tylenol and Ibuprofen for baseline pain control. - You have been prescribed a stronger pain medication, Hydrocodone, for breakthrough pain. - You may apply ice over the wrist, just double bag so it doesn't get wet. Follow-up: 10-14 days Stand Alone Forms: Anesthesia Discharge Inst., Kim Dunn ([facility]) Referrals: Dion Vargas MD [ [facility] ST[facility]FF PHYSICIAN] - Equipment/Supplies: Splint Activity:: Elevate Remove Dressings/Wound Care:: Do Not Remove Shower/Bathe:: Cover Diet:: As Tolerated Discharge Orders Discharge Orders: Discharge Order (Routine); Ordered 01/18/22 Ordered By: Christofer Bender Discharge Data Discharge Date/Time-TO BE ENTERED AT DEPARTURE: 01/18/22 10:03 Discharge Comment: Pt.wheeled out of [facility] by Eli naranjo RN 2 ride home DS: Diagnosis Discharge Diagnosis (1) Ganglion cyst of dorsum of right wrist: Status: Acute
[2022-01-18] MEDS: Lactated Ringers 1,000 ML 80 ML IV (07:48)
--- NOTE | 2022-01-18 07:55 | ANES.PREOP_ITS ---
General Info Date of Service Date Performed: 01/18/22 Height: 5 ft 7 in Weight: 114 kg Body Mass Index (BMI): 39.3 Surgical Procedure: Operation Date: 01/18/22 09:25 Proposed Procedure Side Surgeon p Wrist Ganglion Cyst Excision Rt Right Dion Vargas MD Meds Allergies and Home Medications Allergies Allergy/AdvReac Type Severity Reaction Status Date / Time hornet venom Allergy Severe Anaphylaxsi Verified 01/18/22 07:43 s Opioids - Morphine Analogues Allergy Severe hives Verified 01/18/22 07:43 aspirin Allergy Hives Verified 01/18/22 07:43 hydrocodone bitartrate Allergy Skin Rash Verified 01/18/22 07:43 [From Vicodin] metronidazole AdvReac Intermediate Itchy rash Verified 01/18/22 07:43 on her neck, nausea and fatigue Home Medication Medication Instructions Recorded omeprazole 40 mg capsule,delayed 40 mg PO DAILY #90 cap 12/21/20 release levothyroxine 200 mcg tablet 200 mcg PO .Daily except Monday01/06/21 (Synthroid) #90 tab-cap levothyroxine 75 mcg tablet 75 mcg PO .Daily except Monday #90 01/06/21 tab-cap epinephrine 0.3 mg/0.3 mL 0.3 mg (0.3 mL) IJ DIRECTED #1 09/09/21 injection, auto-injector kit acetaminophen 500 mg tablet 1,000 mg PO TID #90 tab 01/18/22 hydrocodone 5 mg-acetaminophen 325 1 tab PO Q6H PRN #3 tab 01/18/22 mg tablet ibuprofen 600 mg tablet 600 mg PO TID PRN #90 tab 01/18/22 Current Visit Medications: Current Medications Generic Name Dose Route Start Last Admin Trade Name Freq PRN Reason Stop Dose Admin Acetaminophen 650 mg 01/18/22 07:45 Acetaminophen 325 Mg Tab PO Q4H PRN PRN Hydrocodone Bitart/Acetaminophen 0 tab 01/18/22 07:45 Hydrocodone 5/Acetaminophen 325 Tab PO Q3H PRN PRN Pain Ringer's Solution 1,000 mls @ 80 mls/hr 01/18/22 06:00 01/18/22 07:48 IV 02/16/22 23:59 80 mls/hr INFUSION CESARIO Administration Cefazolin Sodium/Dextrose 2 gm in 50 mls @ 100 mls/hr 01/18/22 06:00 Ancef Duplex IVPB 01/18/22 16:00 PREOP CESARIO IV Miscellaneous Supplies 1 each 01/18/22 06:00 Iv Access IV 02/16/22 23:59 DIRECTED CESARIO Sodium Chloride 0 ml 01/18/22 06:00 Normal Saline Flush 10 Ml Syr IV 02/16/22 23:59 PRN PRN Sodium Chloride 0 ml 01/18/22 06:00 Normal Saline 10 Ml Vial IJ 02/16/22 23:59 DIRECTED PRN Sterile Water 0 ml 01/18/22 06:00 Water,Injection,Sterile 10 Ml Vial IJ 02/16/22 23:59 DIRECTED PRN PFSH Active Problems Active Problems: Problem Status Onset Code Bee sting reaction Abnormal uterine bleeding (AUB) 09/13/17 N93.9 Chronic lumbar pain 10/02/14 M54.5, G89.29 Depression 10/02/14 F32.9 Hypothyroidism 10/02/14 E03.9 Seborrheic dermatitis 10/03/17 L21.9 Urinary incontinence 10/02/14 R32 Fall W19.XXXA Strain of left knee S86.912A Positive test for human papillomavirus (HPV) Headache R51 URI (upper respiratory infection) J06.9 GERD (gastroesophageal reflux disease) K21.9 Amenorrhea N91.2 Abdominal pain R10.9 UTI (urinary tract infection) N39.0 Tobacco abuse Z72.0 Vaginitis N76.0 Coccygeal contusion S30.0XXA Contusion of hand, right S60.221A Fracture of scaphoid of right wrist 08/04/21 S62.001A Ganglion cyst of dorsum of right wrist M67.431 Medical History Medical History Chronic lumbar pain s/p L5-S1 surgery. recurrent sx. s/p [facility] [place] pain clinic eval. Oxycodone daily. Lyrica TID. Depression Hypothyroidism 14yo. On chronic replacement. Obese Tobacco use longstanding. has quit during pregnancies Urinary incontinence worse with coughing and sneezing. Medical History Comments:: pt. reports at age 14 having cholecystectomy and not having a good experience with anesthesia. Pt. reports smoking a cigarete today. Surgical History Surgical History (Updated 01/18/22 @ 07:48 by RADHA Torres) Appendectomy 2005 Biopsy 05/27/05-left ovarian Cholecystectomy Dilation and curettage (05/27/05) History of back surgery L5-S1 Ligation of fallopian tube 2003 interval tubal. Oophrectomy, Right 2006 Dr Neves Spinal Fusion 2008 for slipped disk at [facility] [place] Tobacco Smoking/Tobacco Use Status: Current every day Tobacco Type: cigarettes Passive smoking exposure: No Alcohol Alcohol Intake: former Substance Use Substance use: Never Substance use type: does not use and marijuana Prental History History 4 Para Hx # Term Pregnancies 4 Multiple births Hx # Pregnancies Ectopic pregnancies AB induced Hx Number of Living Children AB spontaneous Vital Signs and Lab Results Vital Signs Most Recent Vital Signs in EMR: Most Recent Vital Signs Temp Pulse Resp BP Pulse Ox 36.6 C 86 18 133/81 96 01/18/22 07:28 01/18/22 07:28 01/18/22 07:28 01/18/22 07:28 01/18/22 07:28 Lab Results Blood Type / Crossmatch: No Data to Display Complete Blood Count: No Data to Display Complete Metabolic Panel: No Data to Display Liver Function Panel: No Data to Display Coagulation Panel: No Data to Display Cardiac Panel: No Data to Display Arterial Blood Gas: No Data to Display Venous Blood Gas: No Data to Display Pancreas Panel: No Data to Display Thyroid Panel: No Data to Display Infectious Disease: Coronavirus (COVID-19)(PCR) Negative (Negative) 01/17/22 15:20 01/17/22 Coronavirus 2019 Source Nasal/Nares 01/17/22 15:20 01/17/22 Blood Cultures: No Data to Display Toxicology Panel: No Data to Display Panel: No Data to Display Anesthesia Assessment and Plan Anesthesia History Personal History: Delayed Emergence Family History: No Family History of Anesthesia Complications Exercise Tolerance Exercise Tolerance: Metabolic Equivalents>4 Pertinent Negatives Pertinent Negatives: No Symptoms of GERD, No Major Cardiovascular Symptoms or Complaints, No Major Pulmonary Symptoms or Complaints and No History of CVA/TIA Cardiac & Pulmonary Exam Cardiac Exam: Normal S1/S2 Heart Sounds Pulmonary Exam: Clear Bilateral Breath Sounds Implantable Cardiac Device Does patient have a Pacemaker or an ICD?: No Airway Exam Known Difficult Airway: No Mallampati Class: 2 Mouth Opening: Normal (> 3cm) Thyromental Distance: Greater than 3 cm Neck Range of Motion: Full ROM Neck Circumference: Normal Teeth Condition: Normal Dentition ASA Classification ASA Score: ASA 2 Emergency Case?: No NPO Status NPO Status: NPO Clears >2 hours, Solids >8 hours Status Status: Negative HCG Anesthesia Plan Resuscitation Status: Full Code Anesthesia Technique: General Anesthesia Airway Planned: Natural Airway Monitors Used: Standard Monitors
[2022-01-18 07:57] VITALS: BMI 39.3
[2022-01-18] MEDS: ceFAZolin 2 GM/50 ML BAG IVPB (08:20)
[2022-01-18] MEDS: Sodium Bicarbonate 50 MEQ/50 ML VIAL (08:35)
--- NOTE | 2022-01-18 09:00 | W.ANESPOSTOP ---
Postoperative Evaluation Date, Time and Location Date Performed: 01/18/22 Time Performed: 09:00 Patient Location: Day Surgery Unit Vital Signs Most Recent Imported Vital Signs: Most Recent Vital Signs Temp Pulse Resp BP Pulse Ox 36.6 C 86 18 133/81 96 01/18/22 07:28 01/18/22 07:28 01/18/22 07:28 01/18/22 07:28 01/18/22 07:28 Most Recent Manually Entered Vital Signs: Adult Blood Pressure: 94/70 Heart Rate: 71 Respirations: 12 Oxygen Saturation (%): 95 Temperature (C): 6.3 C Pain Score (0-10 Scale): 0 Pain Score Most Recent Pain Score: Most Recent Pain Score Pain Level 7 01/18/22 07:28 Assessment Mental Status: Awake (Alert & Oriented to Patient Baseline) Airway and Respiratory Function: Patent airway with normal (patient baseline) respiratory exam Cardiovascular Function: Hemodynamically Stable Hydration Status: Adequately Hydrated Nausea & Vomiting: No Nausea or Vomiting Pain: Pt. Denies Any Pain Peripheral Nerve Block: Patient did not receive a nerve block
[2022-01-18 09:02] VITALS: BP 94/70; PULSE 71; RESP 16; TEMP 35.9; O2SAT 95
[2022-01-18 09:05] VITALS: BP 94/70; PULSE 71; RESP 12; TEMPC 43.3; TEMPC 6.3; O2SAT 95
[2022-01-18 09:33] VITALS: BP 114/70; PULSE 66; RESP 16; TEMP 36; O2SAT 96
[2022-01-18] MEDS: Acetaminophen 325 MG TAB 650 MG PO (09:44)
--- NOTE | 2022-01-18 11:09 | NUR.NOTE ---
10:45am Christofer GARCIA provided Eli Monteiro RN an out of work note from Dr. Vargas for this pt. Note hand delivered to [facility] for ortho office to contact/notify pt, workers comp company and employer.
--- NOTE | 2022-01-18 21:02 | W.PM.OP ---
Date of service: 01/18/22 Time of Service: 08:30 Operative Note Operative Note PRE-OP DIAGNOSIS: Right Dorsal Wrist Cyst POST-OP DIAGNOSIS: same PROCEDURE: Excision of right dorsal wrist cyst SURGEON: Dion Vargas Refer to Anesthesia Record ESTIMATED BLOOD LOSS: 0 PATHOLOGY: none sent TOURNIQUET TIME: 0 COMPLICATIONS: None Patient was transported to: same day Patient's condition: stable Indications: Justina is a 41-year-old female who has had pain and swelling over the dorsum of the wrist. There was a prominence which was suggested to be a ganglion cyst although was concerned about scaphoid injury since this occurred after a fall. MRI showed a lobulated ganglion cyst arising from the scaphotrapezial joint in a dorsal direction. Nonoperativeoptions had been trialed. Given their failure, I offered operative intervention. I reviewed the technical details of a ganglion cyst excision. I reviewed the risk of the procedure to include bleeding, infection, pain, stiffness, tendon instability, damage to nerves and vessels, and recurrence. Despite these risks, the patient elected to proceed. Findings: There was a large ganglion cyst which originated from the dorsal wrist capsule at the scaphotrapezial joint. It was located primarily between ECRB and ECRL and was resected at home. Procedure Description: Justina was greeted in the preoperative holding area. Name and surgical site were confirmed. The history and physical was completed. The consent was reviewed the patient and signed. She was taken back to the operating room. The patient was placed in the supine position and monitored anesthesia care was initiated. The right was then prepped with ChloraPrep and draped in a standard fashion after a nonsterile tourniquet was placed high up onto the arm. Prophylactic antibiotics in the form of cefazolin were administered. A timeout was performed for safe surgery. The surgical site was drawn on the skin. The planned surgical field was anesthetized with 0.25% bupivacaine with epinephrine. A 3 cm incision was made longitudinally over the mass starting at Shirley's tubercle moving distally. The skin was incised only. The deep tissue subcutaneous fat was dissected with a tenotomy scissors. I then identified the ECRB, EPL, and ECRL tendons. This allowed me to focus my dissection where the cyst was located based on the MRI. The extensor fashion retinaculum was incised and a ganglion cyst was exposed. The cyst was easily visible at this level. I was able to dissect it more fully and traced it down to the dorsal wrist capsule. Once I was able to follow it down to the wrist capsule I then deflated the cyst removing the typical cyst fluid. Holding the cyst capsule I was able to trace it down to its origin and reset from its origin. I also utilized a rongeur to open this area up to allow scarring and healing. The wound was then thoroughly irrigated. The deep tissue was closed with a 3-0 Vicryl. The skin was closed with a running subjective 4-0 Monocryl. Skin glue was applied. The hand was dressed with 4 x 4's and an Wilfred wrap followed by All counts were correct. Patient was transferred back to same day surgery area in stable condition.
== END 2022-01-18 10:03 | disposition home or self-care (01) ==
PROVIDERS: PCP Family Medicine; Visit Provider Student in an Organized Health Care Education/Training Program
PROC: (CPT 25111; principal; 2022-01-18 09:15)
DX: M67.431 Ganglion, right wrist (principal); F17.210 Nicotine dependence, cigarettes, uncomplicated; E03.9 Hypothyroidism, unspecified; E66.9 Obesity, unspecified
CPT/HCPCS: 25111; 81025; J0690; J1100; J1885; J2001; J2250; J2405

== ENCOUNTER 2022-03-23 04:19 | Outpatient (CLI) | payer MEDICAID, SELFPAY | END 2022-03-23 04:20 | disposition home or self-care (01) | LOC: LOS 04:19 | PROVIDERS: PCP Family Medicine; Visit Provider Family Medicine ==

== ENCOUNTER 2022-03-24 14:52 | Outpatient (CLI) | payer MEDICAID, SELFPAY ==
[2022-03-24 13:16] LABS: TSH (W/Ref FT4) < 0.01 uIU/mL (0.36-3.74)
[2022-03-24 13:34] LABS: FREE T4 1.15 ng/dL (0.76-1.46)
== END 2022-03-24 14:53 | disposition home or self-care (01) ==
LOC: LOS 14:58
PROVIDERS: PCP Family Medicine; Visit Provider Family Medicine
DX: E03.9 Hypothyroidism, unspecified (principal)
CPT/HCPCS: 36415; 84439; 84443

== ENCOUNTER 2022-06-13 13:51 | Outpatient (CLI) | payer OTHER, SELFPAY ==
--- NOTE | 2022-06-13 13:21 | DI.RAD_ITS ---
Exam(s) XR WRIST RT COMPLETE EXAM: XR WRIST RT COMPLETE CLINICAL HISTORY: recurring pain. TECHNIQUE: 2D digital imaging was performed. Three views. COMPARISON: CR XR WRIST RT COMPL NAVICULAR from 09/14/2021 FINDINGS: BONES: No acute fracture is present. No bony destructive lesion is seen. JOINTS: The carpal bones are normally aligned. No significant degenerative changes. SOFT TISSUE: Normal. IMPRESSION: Unremarkable radiographs of the right wrist. DATA REPOSITORY: RADIATION DOSE DELIVERED:
== END 2022-06-13 13:52 | disposition home or self-care (01) ==
LOC: DIORS 13:51
PROVIDERS: PCP Family Medicine; Visit Provider Physician Assistant Surgical
DX: M25.531 Pain in right wrist (principal)
CPT/HCPCS: 73110

== ENCOUNTER 2023-08-04 18:29 | Emergency (ER) | payer MEDICAID, SELFPAY ==
[2023-08-04 18:37] VITALS: BP 119/69; PULSE 59; RESP 20; TEMP 36.8; O2SAT 95
--- NOTE | 2023-08-04 19:15 | DI.CT_ITS ---
Exam(s) CT ABDOMEN PELVIS W EXAM: CT ABDOMEN PELVIS W CLINICAL HISTORY: LLQ pain nausea diarrhea. TECHNIQUE: Imaging Protocol: Axial computed tomography images with coronal and sagittal reformatted images were created and reviewed CONTRAST MATERIAL: Intravenous: Omnipaque-350 100cc Oral: None COMPARISON: CT CHEST FOR PULMONARY EMBOLUS from 05/13/2018 FINDINGS: VISUALIZED LUNG BASES: No nodules nor pleural effusions evident. ABDOMEN: There is no ascites in the upper abdomen. LIVER: There are no focal hepatic lesions evident. No dilated intrahepatic ducts. GALLBLADDER/BILIARY: Gallbladder surgically absent. CBD is not dilated. PANCREAS: No evidence of pancreatic mass nor dilatation of the pancreatic duct. SPLEEN: Spleen is not enlarged. No obvious intrasplenic lesions. Splenic and portal veins are paten t. ADRENALS: Right adrenal gland unremarkable. Mild uniform thickening of the medial limb of the left a drenal gland noted. Lateral limb unremarkable. KIDNEYS:No cysts evident. No solid renal masses. No calculi nor hydronephrosis.. ABDOMINAL AORTA: Abdominal aorta is not enlarged. LYMPH NODES:There is no retroperitoneal nor paraaortic adenopathy. ABDOMINAL WALL: No evidence of significant anterior abdominal wall nor inguinal hernia. GI: There is no evidence of bowel obstruction, free air, nor abscess. Appendix is surgically absent. There are diverticuli in the descending-left colon as well as in the sigmoid. Some very mild streaking is noted around a few of these sigmoid diverticuli, possibly indic ating very subtle diverticulitis. PELVIS: LYMPH NODES: There is no intrapelvic nor inguinal adenopathy. REPRODUCTIVE: Uterus size normal. There are 2 peripherally enhancing cysts in left ovary, the larger of the 2 measuring 2.0 x 1.8 cm. No right adnexal findings. Tiny amount of free fluid in the pelvi s. URINARY BLADDER: Collapsed. OSSEOUS: No fractures and no significant osseous lesions. L5-S1 fusion hardware. IMPRESSION: 1. Colonic diverticulosis with very minimal fat stranding in sigmoid. No obvious acute diverticuliti s but cannot exclude early developing or very subtle diverticulitis. 2. Appendix is surgically absent. 3. Two peripherally enhancing cyst in left ovary with the larger of these 2 cysts measuring 2 x 1.8 c m. Clinically indicated follow-up ultrasound could be performed. 4. Other findings as above. RADIATION DOSE DELIVERED: 1,409.73mGy.cm Total DLP DATA REPOSITORY: All CT scans at this facility are submitted to the National Radiology Data Registry (NRDR) Dose Index Registry (DIR) with the [employer] ([employer]). RADIATION OPTIMIZATION: All CT scans at this facility use at least one of these dose optimization te chniques: automated exposure control; mA and/or kV adjustment per patient size (includes targeted exa ms where dose is matched to clinical indication); or iterative reconstruction.
[2023-08-04] MEDS: Normal Saline 1,000 ML 1000 ML IV (19:38)
[2023-08-04] MEDS: Ondansetron 4 MG/2 ML VIAL IVP (19:38)
[2023-08-04 19:42] LABS: Abs Immature Grans 0.03 10^3/uL (0.0-0.06); Absolute Basophil Count 0.09 10^3/uL (0.0-0.2); Absolute Eosinophil Count 0.33 10^3/uL (0.0-0.7); Absolute Lymphocyte Count 3.18 10^3/uL (1.2-3.4); Absolute Monocyte Count 0.68 10^3/uL (0.1-0.8); Absolute Neutrophil Count 6.62 10^3/uL (1.2-6.7); Basophils % 0.8; HGB 13.9 g/dL (11.2-15.7); Immature Grans % 0.3; Lymphocytes % 29.1; MCH 31.8 pg (27.0-33.0); MCHC 34.8 % (32.0-36.0); MCV 92 fL (80-95); MPV 9.7 fL (8.0-11.0); Monocytes % 6.2; Neutrophils % 60.6; Platelet Count 289 10^3/uL (130-400); RBC 4.37 10^6/uL (3.93-5.22); RDW 12.6 % (11.7-14.6); RDW-SD 41.6 fL; WBC 10.93 10^3/uL (4.4-10.8)
--- NOTE | 2023-08-04 19:54 | W.ED.GENAD ---
Discharge Plan Disposition Patient Disposition: Home Discharge Details Clinical Impression: Diverticulitis, Ovarian cyst, Pulmonary nodule Primary Care Provider: Vickey Chandra ED Provider: Ivan Neville Home Meds and New Rx's Prescriptions: New amoxicillin-pot clavulanate 875-125 mg tablet 1 tab PO BID 10 Days Qty: 20 0RF No Action ondansetron HCl 4 mg tablet 4 mg PO Q8H PRN (Reason: nausea and vomiting) Qty: 60 0RF loperamide [Imodium A-D] 2 mg tablet 2 mg PO Q6H PRN (Reason: loose stool) Qty: 60 0RF levothyroxine 75 mcg tablet 75 mcg PO .Daily except Monday Qty: 90 0RF levothyroxine [Synthroid] 200 mcg tablet 200 mcg PO .Daily except Monday Qty: 90 0RF Rx Instructions: take daily along with 75mcg tablet. epinephrine 0.3 mg/0.3 mL auto-injector 0.3 mg IJ DIRECTED Qty: 1 0RF Rx Instructions: Administed as directed on label for severe allergic reaction omeprazole 40 mg capsule,delayed release(DR/EC) 40 mg PO DAILY Qty: 90 0RF acetaminophen 500 mg tablet 1,000 mg PO TID Qty: 90 0RF ibuprofen 600 mg tablet 600 mg PO TID PRN (Reason: pain) Qty: 90 0RF Discharge Instructions Instructions: Ovarian Cyst (ED), Diverticulitis (ED), Pulmonary Nodules (ED) Additional Instructions: Please only fill antibiotic prescription if you are left lower quadrant pain is getting worse and is associated with fevers chills shakes or other abnormal symptoms. Follow-up on Monday for pelvic ultrasound to assess your left ovarian cyst. You will be hearing from a tailor women's garment alteration with regards to women's health appointment next week. Again incidental pulmonary nodules were seen on your CT scan which should be followed up with your primary care physician within the next several weeks to months. Please return to the emergency department for any worsening symptoms Medical Decision Making 43-year-old female presents with 1 month of left lower quadrant pain associate with nausea. Patient hemodynamically stable nonperitoneal. Appears well-hydrated. However given chronicity of symptoms and level of discomfort over the past month will obtain labs and imaging. Consider diverticulitis versus colitis versus ovarian pathology versus UTI. 22: 01 patient resting comfortably feeling better. No acute distress. Multiple findings on CT scan including possible mild/early diverticulitis as well as left ovarian cyst and incidental pulmonary nodules. Patient counseled regarding all of these findings. Will be given women's health follow-up as well as Monday pelvic ultrasound referral. Will write papers prescription for Augmentin only to be filled for worsening infectious symptomatology otherwise advance diet as tolerated Home care instructions and strict return precautions given. HPI General Date/Time Provider Initiated Documentation: 08/04/23 19:11. HPI Narrative: 43-year-old female presents with 1 month of left lower quadrant abdominal discomfort and diarrhea. Intermittent nausea. Related Data Home Medications Medication Instructions Recorded Confirmed epinephrine 0.3 mg/0.3 mL 0.3 mg (0.3 mL) IJ DIRECTED ##1 09/09/21 06/30/23 injection, auto-injector acetaminophen 500 mg tablet 1,000 mg PO TID #90 tabs 01/18/22 06/30/23 ibuprofen 600 mg tablet 600 mg PO TID PRN pain #90 tabs 01/18/22 06/30/23 omeprazole 40 mg capsule,delayed 40 mg PO DAILY #90 caps 06/28/23 06/30/23 release levothyroxine 200 mcg tablet 200 mcg PO .Daily except Monday06/30/23 06/30/23 (Synthroid) #90 tab-caps levothyroxine 75 mcg tablet 75 mcg PO .Daily except Monday #90 06/30/23 06/30/23 tab-caps loperamide 2 mg tablet (Imodium 2 mg PO Q6H PRN loose stool #60 06/30/23 06/30/23 A-D) tabs ondansetron HCl 4 mg tablet 4 mg PO Q8H PRN nausea and 06/30/23 06/30/23 vomiting #60 tabs amoxicillin 875 mg-potassium 1 tab PO BID 10 days #20 tabs 08/04/23 clavulanate 125 mg tablet Previous Rx's Medication Instructions Recorded epinephrine 0.3 mg/0.3 mL 0.3 mg (0.3 mL) IJ DIRECTED ##1 09/09/21 injection, auto-injector acetaminophen 500 mg tablet 1,000 mg PO TID #90 tabs 01/18/22 ibuprofen 600 mg tablet 600 mg PO TID PRN pain #90 tabs 01/18/22 omeprazole 40 mg capsule,delayed 40 mg PO DAILY #90 caps 06/28/23 release levothyroxine 200 mcg tablet 200 mcg PO .Daily except Monday06/30/23 (Synthroid) #90 tab-caps levothyroxine 75 mcg tablet 75 mcg PO .Daily except Monday #90 06/30/23 tab-caps loperamide 2 mg tablet (Imodium 2 mg PO Q6H PRN loose stool #60 06/30/23 A-D) tabs ondansetron HCl 4 mg tablet 4 mg PO Q8H PRN nausea and 06/30/23 vomiting #60 tabs amoxicillin 875 mg-potassium 1 tab PO BID 10 days #20 tabs 08/04/23 clavulanate 125 mg tablet Allergies Allergy/AdvReac Type Severity Reaction Status Date / Time hornet venom Allergy Severe Anaphylaxsi Verified 06/30/23 15:44 s Opioids - Morphine Analogues Allergy Severe hives Verified 06/30/23 15:44 aspirin Allergy Hives Verified 06/30/23 15:44 hydrocodone bitartrate Allergy Skin Rash Verified 06/30/23 15:44 [From Vicodin] metronidazole AdvReac Intermediate Itchy rash Verified 06/30/23 15:44 on her neck, nausea and fatigue General Stated Complaint: Abd Prob MADYSON: 3 Review of Systems Narrative: Review of Systems Constitutional: negative Eyes: negative ENT: negative Cardiovascular: negative Respiratory: negative Gastrointestinal: Abdominal pain, nausea : negative Musculoskeletal: negative Skin: negative Neurologic: negative Psych: negative PFSH All Active Problems Diverticulitis (Chronic) Ovarian cyst (Acute) Pulmonary nodule (Acute) Diarrhea (Acute) Bee sting reaction (Chronic) Abnormal uterine bleeding (AUB) (Chronic 09/13/17) Cyclic Norethindrone. Chronic lumbar pain (Chronic 10/02/14) s[place] [facility] [place]. s/p lumbar surgery L5-S1. folowed by PCP. No narcotics. Depression (Chronic 10/02/14) recent exacerbation secondary to divorce. has counselor Gisele Roca. will increase Wellbutrin dose. Hypothyroidism (Chronic 10/02/14) since age 14 Seborrheic dermatitis (Chronic 10/03/17) Urinary incontinence (Chronic 10/02/14) Fall (Chronic) Strain of left knee (Chronic) Positive test for human papillomavirus (HPV) (Acute) Headache (Acute) URI (upper respiratory infection) (Acute) GERD (gastroesophageal reflux disease) (Chronic) Amenorrhea (Acute) Abdominal pain (Acute) UTI (urinary tract infection) (Acute) Tobacco abuse (Acute) Vaginitis (Acute) Coccygeal contusion (Acute) Contusion of hand, right (Acute) Fracture of scaphoid of right wrist (Acute 08/04/21) Ganglion cyst of dorsum of right wrist (Acute) S/P Excision: 01/18/2022 Medical History (Updated 08/04/23 @ 22:03 by Ivan Neville MD) Chronic lumbar pain s/p L5-S1 surgery. recurrent sx. s/p [facility] [place]. Oxycodone daily. Lyrica TID. COVID 07/25/22-is vaccinated Depression Hypothyroidism 14yo. On chronic replacement. Obese Tobacco use longstanding. has quit during pregnancies Urinary incontinence worse with coughing and sneezing. Surgical History Appendectomy 2005 Biopsy 05/27/05-left ovarian Cholecystectomy Dilation and curettage (05/27/05) History of back surgery L5-S1 Ligation of fallopian tube 2003 interval tubal. Oophrectomy, Right 2006 Dr Neves Spinal Fusion 2008 for slipped disk [place] [facility] Family History Mother Personal history of malignant neoplasm ovarian CA Sister Personal history of malignant neoplasm uterine CA. S/P hysterectomy Mental disorder Grandfather Diabetes Hyperlipidemia Grandmother Personal history of malignant neoplasm breast CA Father Personal history of malignant neoplasm ORAL Grandfather No problems noted. Grandmother No problems noted. 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 Pets and animals: Yes Pets and animals: cat(s) Current gender identity: female Duration: 15-30 minutes/day Frequency: 1-2 times per week Special viki needs: No Seatbelt use: always Helmet use: Yes Helmet use: always Do you feel safe at home: Yes Do you feel safe in your relationship?: Yes Female Reproductive History Menstrual control method: permanent sterilization History History 4 Para Hx # Term Pregnancies 4 Multiple births Hx # Pregnancies Ectopic pregnancies AB induced Hx Number of Living Children AB spontaneous Exam Narrative Exam Narrative: Physical Examination General: alert, awake, cooperative, resting comfortably, no acute distress HEENT: normocephalic, atraumatic; PERRL, EOM intact, conjunctiva normal; no nasal discharge; moist mucous membranes, oral and pharyngeal mucosa normal, tolerating secretions Neck: supple, trachea midline; full ROM Chest: normal to inspection Respiratory: normal respiratory effort, speaking in full sentences, clear to auscultation, no wheezing, rales or rhonchi Cardiac: regular rate, regular rhythm, S1S2 intact, no murmurs rubs or gallops GI: abdomen soft, non-tender, non-distended; no palpable mass or hepatosplenomegaly Skin: no lesions, rashes or trauma appreciated Neuro: AAOx3, normal speech, moving all extremities Psych: Appropriate mood and affect Course Vital Signs Vital signs: Vital Signs Temperature 36.8 C 08/04/23 18:37 Pulse 59 L 08/04/23 18:37 Respiratory Rate 20 08/04/23 18:37 Blood Pressure 119/69 08/04/23 18:37 Pulse Oximetry 95 08/04/23 18:37 Temperature 36.8 C 08/04/23 18:37 Temperature Source Oral 08/04/23 18:37 Pulse 59 L 08/04/23 18:37 Respiratory Rate 20 08/04/23 18:37 Blood Pressure 119/69 08/04/23 18:37 Blood Pressure Position Sitting 08/04/23 18:37 Pulse Oximetry 95 08/04/23 18:37 Oxygen Delivery Method Room Air 08/04/23 18:37 Oxygen Flow Rate 0 08/04/23 18:37 Pain Level 9 08/04/23 18:37 Lab/Test Results Lab/Test Results: Laboratory Tests Range/Units 08/04/23 19:30 WBC (4.4-10.8) 10^3/uL 10.93 H RBC (3.93-5.22) 10^6/uL 4.37 Hgb (11.2-15.7) g/dL 13.9 Hct (36.0-46.0) % 40.0 MCV (80-95) fL 92 MCH (27.0-33.0) pg 31.8 MCHC (32.0-36.0) % 34.8 RDW (11.7-14.6) % 12.6 Plt Count (130-400) 10^3/uL 289 MPV (8.0-11.0) fL 9.7 Immature Gran % 0.3 Neutrophils % 60.6 Lymphocytes % 29.1 Monocytes % 6.2 Eosinophils % 3.0 Basophils % 0.8 Nucleated RBC % (0.0-0.3) % 0.0 Absolute Neutrophils (1.2-6.7) 10^3/uL 6.62 Absolute Lymphocytes (1.2-3.4) 10^3/uL 3.18 Absolute Monocytes (0.1-0.8) 10^3/uL 0.68 Absolute Eosinophils (0.0-0.7) 10^3/uL 0.33 Absolute Basophils (0.0-0.2) 10^3/uL 0.09
[2023-08-04 20:08] LABS: ALT 18 U/L (14-59); AST 14 U/L (15-37); Albumin 3.6 g/dL (3.4-5.0); Alkaline Phosphatase 75 U/L (46-116); Anion Gap 9.1 mmol/L (3-11); BUN 13 mg/dL (7-18); Bilirubin, Total 0.2 mg/dL (0.2-1.0); CO2 25.9 mmol/L (21.0-32.0); Calcium 9.2 mg/dL (8.5-10.1); Chloride 103 mmol/L (98-107); Glucose 99 mg/dL (74-106); Lipase 18 U/L (16-77); Potassium 3.9 mmol/L (3.5-5.1); Sodium 138 mmol/L (136-145); Total Protein 7.5 g/dL (6.4-8.2)
[2023-08-04] MEDS: Omnipaque 350 MG/ML 100 ML BTL IJ (20:56)
[2023-08-04] MEDS: Normal Saline - Diluent 50 ML VIAL IJ (20:56)
[2023-08-04] MEDS: Normal Saline Flush 10 ML SYR IVP (20:57)
[2023-08-04 21:14] LABS: Bilirubin Negative (Negative); Blood Negative (Negative); Clarity Clear (Clear); Glucose Negative (Negative); Ketones Negative (Negative); Leukocyte Esterase Negative (Negative); Nitrite Negative (Negative); Specific Gravity >= 1.030 (1.005-1.025); Urobilinogen 0.2 mg/dL (Up to 0.2); pH 5.5 (5-8)
--- NOTE | 2023-08-04 21:42 | DI.VRAD_ITS ---
PROCEDURE INFORMATION: Exam: CT Abdomen And Pelvis With Contrast Exam date and time: 08/04/2023 8:52 PM Age: 43 years old Clinical indication: Other: Llq pain nausea diarrhea; Prior surgery; Surgery date: 6+ months; Surgery type: Cholecystectomy, appendectomy and back TECHNIQUE: Imaging protocol: Computed tomography of the abdomen and pelvis with contrast. Contrast material: OMNIPAQUE 350; Contrast volume: 100 ml; Contrast route: INTRAVENOUS (IV); COMPARISON: CT ABD PELVIS WITH CONTRAST 09/02/2016 8:56 PM FINDINGS: Lungs: There are some ground-glass opacities in the dependent aspect of the right lower lung favored to represent atelectasis. However, findings should be correlated with any concern for infection. There are pleural based nodular densities in the dependent aspect of the left lower lung measuring up to 8 mm. Liver: Mild hepatomegaly with the liver measuring 16.5 cm, craniocaudally, previously 17 cm. Gallbladder and bile ducts: Cholecystectomy. Pancreas: Somewhat atrophic. Spleen: Normal. No splenomegaly. Adrenal glands: The left adrenal gland is bulky with portions measuring less than 10 Hounsfield units. Findings are suggestive of a subtle adrenal adenoma. Kidneys and ureters: Normal. No hydronephrosis. Stomach and bowel: No obstruction. There is gastric wall prominence which can be seen with underdistention or gastritis. There is colonic diverticulosis with very minimal haziness of the adjacent fat in the left lower quadrant on series 4, image 70 for which a component of early/mild diverticulitis is not excluded. There is also wall prominence to the descending colon and sigmoid colon which may be related to underdistention but should be correlated with any concern for colitis. Appendix: Appendectomy per history. Intraperitoneal space: No free air. Small amount of free fluid in the pelvis. Vasculature: Vascular calcifications. Lymph nodes: Unremarkable. No enlarged lymph nodes. Urinary bladder: Urinary bladder wall prominence. This can be seen with infection or underdistention. Reproductive: There are 1.5 and 2.2 cm rim enhancing cystic structures in the left ovary which do not fulfill the criteria for a simple cyst. There may be a gynecologic source for the patient's pain. Ultrasound recommended for further evaluation. Bones/joints: Postsurgical changes in the spine. No acute fracture. Soft tissues: Small umbilical hernia containing fat. IMPRESSION: 1. There is gastric wall prominence which can be seen with underdistention or gastritis. There is also wall prominence to the descending colon and sigmoid colon which may be related to underdistention but should be correlated with any concern for colitis. 2. There is colonic diverticulosis with very minimal haziness of the adjacent fat in the left lower quadrant on series 4, image 70 for which a component of early/mild diverticulitis is not excluded. 3. There are 1.5 and 2.2 cm rim enhancing cystic structures in the left ovary which do not fulfill the criteria for a simple cyst. There may be a gynecologic source for the patient's pain. Ultrasound recommended for further evaluation. 4. Some ground-glass opacities in the dependent aspect of the right lung. This is favored to represent atelectasis but should be correlated with any concern for infection. There are also pleural based nodular densities in the dependent aspect of the left lower lung measuring up to 8 mm. Recommend follow-up CT Chest in 6-12 months. (References: Nilton and Ibeth) 5. Urinary bladder wall prominence. This can be seen with infection or underdistention. Small amount of free fluid in the pelvis, hepatomegaly, and other findings/details as above. References: Brendahopanchito H, et al. Guidelines for Management of Incidental Pulmonary Nodules Detected on CT Images: From the Fleischner Society 2017. Radiology. 2017;284(1):228-243. References: Ibeth J, et al. Updated Fleischner Society Guidelines for Managing Incidental Pulmonary Nodules: Common Questions and Challenging Scenarios. Radiographics. 2018;38(5):0954-5225. Dictated and Authenticated by: Stacia Frey MD. Ordering:ARIES Love MD
--- NOTE | 2023-08-04 22:02 | NUR.NOTE ---
DI Requisition faxed to Radiology for Pelvic U/S. Patient will call 08/07/23 to make appointment. Referral faxed to [facility] to follow up after U/S for ovarian cyst.
== END 2023-08-04 22:13 | disposition home or self-care (01) ==
PROVIDERS: Emergency Provider Emergency Medicine; PCP Family Medicine
DX: N83.202 Unspecified ovarian cyst, left side (principal); K57.92 Diverticulitis of intestine, part unspecified, without perforation or abscess without bleeding; R91.1 Solitary pulmonary nodule
CPT/HCPCS: 80053; 81025; 83690; 96361; 96374; 99285; 74177; 81003; 85025; 99284; J2405; J3490

== ENCOUNTER → 2023-08-07 08:46 | Outpatient (CLI) | payer MEDICAID, SELFPAY ==
--- NOTE | 2023-08-07 | DI.US_ITS ---
Exam(s) US PELVIS TRANSVAGINAL EXAM: US PELVIS TRANSVAGINAL CLINICAL HISTORY: LEFT OVARIAN CYST, ABD PAIN TECHNIQUE: Transabdominal and transvaginal imaging was performed using standard protocol. COMPARISON: CT CT ABDOMEN PELVIS W from 08/04/2023 FINDINGS: Transabdominal exam limited by patient body habitus. UTERUS: Anteverted. 8.8 x 3.9 x 5.2 cm Endometrium: 8 mm Myometrium: Unremarkable. Cervix: Nabothian cysts. OVARIES: Right: Status post right oophorectomy. Left: Cyst or mass: 12 millimeter follicle DOPPLER: Color: Symmetric and uniform flow to both ovaries. No hyperemia. CUL-DE-SAC: Free fluid: Trace IMPRESSION: 1. Normal-appearing uterus with endometrial stripe within normal limits. 2. Unremarkable left ovary. Status post right oophorectomy. DATA REPOSITORY:
== END ==
PROVIDERS: PCP Family Medicine; Visit Provider Emergency Medicine
DX: R10.9 Unspecified abdominal pain (principal); N83.202 Unspecified ovarian cyst, left side
CPT/HCPCS: 76830; 76856

== ENCOUNTER 2023-12-15 09:03 | Outpatient (CLI) | payer MEDICAID, SELFPAY ==
[2023-12-15 12:18] LABS: HGB 13.8 g/dL (11.2-15.7); MCH 30.2 pg (27.0-33.0); MCHC 33.7 % (32.0-36.0); MCV 90 fL (80-95); Platelet Count 289 10^3/uL (130-400); RBC 4.57 10^6/uL (3.93-5.22); RDW 11.7 % (11.7-14.6); WBC 7.89 10^3/uL (4.4-10.8)
[2023-12-15 12:39] LABS: ALT 31 U/L (14-59); AST 24 U/L (15-37); Albumin 3.6 g/dL (3.4-5.0); Alkaline Phosphatase 60 U/L (46-116); Anion Gap 7.3 mmol/L (3-11); BUN 17 mg/dL (7-18); Bilirubin, Total 0.5 mg/dL (0.2-1.0); CO2 27.7 mmol/L (21.0-32.0); Calcium 8.9 mg/dL (8.5-10.1); Chloride 104 mmol/L (98-107); Glucose 96 mg/dL (74-106); Potassium 4.1 mmol/L (3.5-5.1); Sodium 139 mmol/L (136-145); TSH (W/Ref FT4) 0.02 uIU/mL (0.36-3.74); Total Protein 7.4 g/dL (6.4-8.2)
[2023-12-15 12:56] LABS: FREE T4 1.67 ng/dL (0.76-1.46)
== END 2023-12-15 09:04 | disposition home or self-care (01) ==
LOC: LOS 09:03
PROVIDERS: PCP Family Medicine; Referring Provider Nurse Practitioner Family; Visit Provider Nurse Practitioner Family
DX: K92.1 Melena (principal); R42 Dizziness and giddiness
CPT/HCPCS: 36415; 80053; 85027; 84439; 84443

== ENCOUNTER 2023-12-20 16:28 | Outpatient (REF) | payer MEDICAID, SELFPAY ==
--- NOTE | 2023-12-20 15:30 | PAPFT_PTH ---
PATIENT: Justina Augustin LOC: [facility] U#:[id number] AGE/SX: 43/F ROOM: RE12/20/[address]: Vickey Chandra MD : 1980 BED: DIS: 12/20/2023 SPEC #: [id number] RECD: 12/21/23 13:03 STATUS: LISA REMoshe #: [id number] OTILIA: 12/20/23 15:[address]: Vickey Chandra DEPT: [facility] Cytology RECD BY: Iveth Govae Tissues: 1 - CX/ENDOCX FOR PAP SMEARS Procedures: PAP THIN PREP/UVM Screening Comments: [id number]
[2023-12-22 13:51] LABS: Chlamydia Result Negative (Negative); GC Result Negative (Negative)
== END 2023-12-20 16:29 | disposition home or self-care (01) ==
LOC: LBN 16:28
PROVIDERS: PCP Family Medicine; Visit Provider Family Medicine
DX: R10.2 Pelvic and perineal pain (principal)
CPT/HCPCS: 87491; 87591; 88142

== ENCOUNTER 2023-12-25 11:17 | Day surgery (SDC) | payer MEDICAID, SELFPAY ==
--- NOTE | 2023-12-24 15:49 | W.PM.DSUDISC ---
Date of service: 12/25/23 Time of Service: 13:36 Discharge Plan Disposition Patient Disposition: Home Condition: Good Discharge Details Reason For Visit: screening colonoscopy Attending Provider: Wilberto Troncoso Primary Care Provider: Vickey Chandra Home Meds and New Rx's Prescriptions: Continued omeprazole 40 mg capsule,delayed release(DR/EC) 40 mg PO DAILY Qty: 90 3RF ondansetron HCl 4 mg tablet 4 mg PO Q8H PRN (Reason: nausea and vomiting) Qty: 60 0RF levothyroxine [Synthroid] 200 mcg tablet 200 mcg PO .Daily except Monday Qty: 90 0RF Rx Instructions: take daily along with 75mcg tablet. Estroven Cmplt Menopause Rlf 4 mg tablet PO Discontinued bisacodyl [Dulcolax (bisacodyl)] 5 mg tablet,delayed release (DR/EC) 5 mg PO ONCE Qty: 4 0RF Rx Instructions: Colonoscopy Bowel Prep- Per Instructions polyethylene glycol 3350 17 gram/dose powder 238 g PO ONCE Qty: 238 0RF Rx Instructions: Colonoscopy Bowel Prep- Per Instructions Discharge Instructions Instructions: Hemorrhoids (GEN), Diverticulosis (GEN), Colorectal Polyps (GEN), Diverticulosis Diet (GEN) Additional Instructions: Justina, we are able to complete your colonoscopy today without any difficulty. I did find a total of 5 polyps. I removed these all completely. They all look quite benign. I will take week or 2 for me to get the results on the polyp report. At that point, be in touch with recommendations for your next colonoscopy. Incidentally, you have a fair amount of sigmoid diverticulosis, as well as internal hemorrhoids. Diverticula are little weak spots in the colon wall that typically accumulate as we get older. They can become infected and inflamed. When that happens, patients typically have quite a bit of pain usually in the left lower part of their abdomen. This is often times accompanied by fevers, and a general feeling of illness. During those times, patient should probably be treated with antibiotics. Diverticula can also be a source of bleeding, but all things being equal, internal hemorrhoids are the most likely source of the bleeding that you have noticed in your stools. Regardless, making sure that you have plenty of fiber in your diet, and avoiding symptoms of constipation and dehydration are probably your best strategy as it will help both diverticulosis, as well as hemorrhoid symptoms. 1. If tolerated, consume a soft, low fiber diet for 1-2 days. 2. Do not drive, drink alcohol, operate machinery, make critical decisions, or do activities that require coordination or balance for 24 hours. 3. Because air was put into your colon during the procedure, expelling air from your rectum (passing gas or farting) is normal. 4. You may not have a bowel movement for 1-3 days because of the colonoscopy prep. This is normal. 5. Go directly to the emergency room if you notice any of the following: Develop chills (warm to touch), or if you have a thermometer and your temperature is above 101 Difficulty breathing or difficultly swallowing Persistent vomiting Severe abdominal pain, other than gas cramps Severe chest pain Black, tarry stools Any bleeding ? exceeding one tablespoon 6. Call your physician if the site where your intravenous was started becomes red, swollen, painful, and warm to touch. 7. Your physician has reviewed your pre-procedure medications. Please continue to take those medications as previously ordered. You will be given specific information/education regarding any changes to your medications before leaving. Activity:: Activity as Tolerated Diet:: As Tolerated Discharge Orders Discharge Orders: Discharge Order (Routine); Ordered 12/24/23 Ordered By: Wilberto Troncoso DS: Diagnosis Discharge Diagnosis (1) Encounter for screening colonoscopy: Status: Acute Asessment and Plan: Follow-up on polypectomy results
--- NOTE | 2023-12-24 15:51 | COLE_ITS ---
Date of service: 12/25/23 Time of Service: 13:40 Colonoscopy Report Date of procedure: 12/25/23 Pre-op diagnosis general: screening colonoscopy Post-op diagnosis procedure note: other (Internal hemorrhoids, diverticulosis, colorectal polyps) Procedure: colonoscopy with polypectomy Surgeon: Wilberto Troncoso Anesthesia Type: General:No Airway Estimated blood loss (mL): 10 Pathology: other (Rectal polyps x 4, 0.5 cm polyp at 30 cm) Complications: None Disposition: same day Indications: Justina is 43 years old and she needs her first screening colonoscopy Prep: Miralax/Dulcolax Procedure Start Time: 13:04 Procedure End Time: 13:27 Retraction Time: 18 Findings: Grade 2 internal hemorrhoids, sigmoid diverticulosis, rectal polyps, 0.5 cm colon polyp at 30 cm from the anus Procedure Description: After the induction of monitored anesthetic care, and with the patient in left lateral decubitus position, I began by performing an external anorectal exam.? Perineum and skin were normal, as was the anal verge.? There was no evidence of external hemorrhoids.? Next, I performed a digital rectal exam.? I did not appreciate any abnormal findings.? Next, I advanced a colonoscope into the rectal vault.? I performed retroflexion.? There were grade 2 internal hemorrhoids.? Using insufflation, I then advanced the colonoscope beyond the rectal folds and into the sigmoid colon before advancing towards the cecum.? There was sigmoid diverticulosis. Majority of the diverticula are narrow mouth, the true lumen was quite easy to maintain. There was no stigmata of recent bleeding.? The scope was noted to be in the cecum by identification of the ileocecal valve and appendiceal orifice.? I then began withdrawing the colonoscope using repeated irrigation as necessary for full evaluation of the colonic mucosa. Around 30 cm from the anus was a 0.5 cm flat polyp. I removed this with cold forceps without issue. There was minimal bleeding. Within the lower portion of the rectum there were several polyps. Majority range from 0.25 cm to 0.5 cm. Narrowband imaging was used to assist with analysis. These all looked quite benign. However, I did remove the for most dominant polyps for adequate sampling. This was done with cold forceps without any issue. Once the scope was withdrawn to the level of the rectum, great care was taken to examine portions of the rectal folds.? Finally, the scope was withdrawn and the patient was brought to the same-day surgery recovery unit as the anesthetic wore off. ?The findings and instructions were shared with the patient prior to discharge. Freeman Spur Bowel Prep Freeman Spur Bowel Prep Right Colon: 3 Left Colon: 3 Transverse Colon: 3 Total Score: 9
--- NOTE | 2023-12-24 16:14 | W.ANESPRE ---
General Info Date of Service Date Performed: 12/25/23 Height: 5 ft 7 in Weight: 114.475 kg Body Mass Index (BMI): 39.5 Surgical Procedure: Operation Date: 12/25/23 13:35 Proposed Procedure Side Surgeon melita Troncoso MD Meds Allergies and Home Medications Allergies Allergy/AdvReac Type Severity Reaction Status Date / Time hornet venom Allergy Severe Anaphylaxsi Verified 12/25/23 11:39 s Opioids - Morphine Analogues Allergy Severe hives Verified 12/25/23 11:39 aspirin Allergy Hives Verified 12/25/23 11:39 hydrocodone bitartrate Allergy Skin Rash Verified 12/25/23 11:39 [From Vicodin] metronidazole AdvReac Intermediate Itchy rash Verified 12/25/23 11:39 on her neck, nausea and fatigue rhiannon Allergy Intermediate hives Uncoded 12/25/23 11:39 Home Medication Medication Instructions Recorded omeprazole 40 mg capsule,delayed 40 mg PO DAILY #90 caps 09/13/23 release levothyroxine 200 mcg tablet 200 mcg PO .Daily except Monday11/18/23 (Synthroid) #90 tab-caps ondansetron HCl 4 mg tablet 4 mg PO Q8H PRN nausea and 12/15/23 vomiting #60 tabs rhubarb root extract 4 mg tablet mg PO 12/25/23 (Estroven Complete Menopause Relief) Current Visit Medications: Current Medications Generic Name Dose Route Start Last Admin Trade Name Freq PRN Reason Stop Dose Admin Hyoscyamine Sulfate 0.125 mg 12/24/23 15:52 Hyoscyamine 0.125 Mg Sl/Oral/Chew SL 01/23/24 15:51 DIRECTED PRN Ringer's Solution 1,000 mls @ 80 mls/hr 12/25/23 06:00 IV 01/21/24 23:59 INFUSION CESARIO IV Miscellaneous Supplies 1 each 12/25/23 06:00 Iv Access IV 01/21/24 23:59 DIRECTED CESARIO Ondansetron HCl 4 mg 12/24/23 15:52 Ondansetron 4 Mg/2 Ml Vial IVP 01/23/24 15:51 Q4H PRN PRN Nausea / Vomiting Sodium Chloride 0 ml 12/25/23 06:00 Normal Saline Flush 10 Ml Syr IV 01/21/24 23:59 PRN PRN Sodium Chloride 0 ml 12/25/23 06:00 Normal Saline 10 Ml Vial IJ 01/21/24 23:59 DIRECTED PRN Sterile Water 0 ml 12/25/23 06:00 Water,Injection,Sterile 10 Ml Vial IJ 01/21/24 23:59 DIRECTED PRN PFSH Active Problems Active Problems: Problem Status Onset Code Encounter for screening colonoscopy Z12.11 Hemoptysis R04.2 Blood in stool K92.1 Screen for colon cancer Z12.11 Dizziness R42 Paresthesia R20.2 Diverticula, colon K57.30 Diarrhea R19.7 Bee sting reaction Abnormal uterine bleeding (AUB) 09/13/17 N93.9 Chronic lumbar pain 10/02/14 M54.5, G89.29 Depression 10/02/14 F32.9 Hypothyroidism 10/02/14 E03.9 Seborrheic dermatitis 10/03/17 L21.9 Urinary incontinence 10/02/14 R32 Fall W19.XXXA Strain of left knee S86.912A Positive test for human papillomavirus (HPV) Headache R51 URI (upper respiratory infection) J06.9 GERD (gastroesophageal reflux disease) K21.9 Amenorrhea N91.2 Abdominal pain R10.9 UTI (urinary tract infection) N39.0 Tobacco abuse Z72.0 Vaginitis N76.0 Coccygeal contusion S30.0XXA Contusion of hand, right S60.221A Fracture of scaphoid of right wrist 08/04/21 S62.001A Ganglion cyst of dorsum of right wrist M67.431 Medical History Medical History COVID 07/25/22-is vaccinated Obese Tobacco use longstanding. has quit during pregnancies Hypothyroidism 14yo. On chronic replacement. Depression Chronic lumbar pain s/p L5-S1 surgery. recurrent sx. s/p [facility] pain clinic eval. Oxycodone daily. Lyrica TID. Urinary incontinence worse with coughing and sneezing. Medical History Comments:: Pt. states a while ago she said she could hear everybody but could not open her eyes. Pt. states that she has had procedures since then and it has not happened. She states she does not remember which procedure this happened on if it was her gallbladder or appendix Surgical History Surgical History History of back surgery L5-S1 Ligation of fallopian tube 2002 interval tubal. Spinal Fusion 2007 for slipped disk at [facility] Oophrectomy, Right 2006 Dr Neves Dilation and curettage (05/27/05) Cholecystectomy Biopsy 05/27/05-left ovarian Appendectomy 2004 Tobacco Smoking/Tobacco Use Status: Current every day Tobacco Type: cigarettes Passive smoking exposure: No Alcohol Alcohol Intake: former Substance Use Substance use: Occasionally Substance use type: marijuana Prental History History 4 Para Hx # Term Pregnancies 4 Multiple births Hx # Pregnancies Ectopic pregnancies AB induced Hx Number of Living Children AB spontaneous Vital Signs and Lab Results Vital Signs Most Recent Vital Signs in EMR: Temp Pulse Resp BP Pulse Ox 36.4 C L 77 16 119/75 94 12/25/23 11:43 12/25/23 11:43 12/25/23 11:43 12/25/23 11:43 12/25/23 11:43 Lab Results Blood Type / Crossmatch: No Data to Display Complete Blood Count: White Blood Count 7.89 10^3/uL (4.4-10.8) 12/15/23 09:12 Red Blood Count 4.57 10^6/uL (3.93-5.22) 12/15/23 09:12 Hemoglobin 13.8 g/dL (11.2-15.7) 12/15/23 09:12 Hematocrit 41.0 % (36.0-46.0) 12/15/23 09:12 Platelet Count 289 10^3/uL (130-400) 12/15/23 09:12 Complete Metabolic Panel: Sodium 139 mmol/L (136-145) 12/15/23 09:12 Potassium 4.1 mmol/L (3.5-5.1) 12/15/23 09:12 Chloride 104 mmol/L (98-107) 12/15/23 09:12 Carbon Dioxide 27.7 mmol/L (21.0-32.0) 12/15/23 09:12 BUN 17 mg/dL (7-18) 12/15/23 09:12 Creatinine 1.0 mg/dL (0.55-1.02) 12/15/23 09:12 Est GFR (CKD-EPI 2020) 70.80 (mL/min/1.73m2) 12/15/23 09:12 Calcium 8.9 mg/dL (8.5-10.1) 12/15/23 09:12 Albumin 3.6 g/dL (3.4-5.0) 12/15/23 09:12 Glucose 96 mg/dL (74-106) 12/15/23 09:12 Liver Function Panel: Alanine Aminotransferase (ALT/SGPT) 31 U/L (14-59) 12/15/23 09:12 Aspartate Amino Transf (AST/SGOT) 24 U/L (15-37) 12/15/23 09:12 Coagulation Panel: No Data to Display Cardiac Panel: No Data to Display Arterial Blood Gas: No Data to Display Venous Blood Gas: No Data to Display Pancreas Panel: No Data to Display Thyroid Panel: Thyroid Stimulating Hormone (TSH) 0.02 uIU/mL (0.36-3.74) L 12/15/23 09:12 Infectious Disease: Neisseria gonorrhoeae DNA Probe Negative (Negative) 12/20/23 15:40 Blood Cultures: No Data to Display Toxicology Panel: No Data to Display Panel: No Data to Display Anesthesia Assessment and Plan Anesthesia History Personal History: Awareness Under Anesthesia Family History: No Family History of Anesthesia Complications Exercise Tolerance Exercise Tolerance: Metabolic Equivalents>4 Cardiac & Pulmonary Exam Cardiac Exam: Normal S1/S2 Heart Sounds Pulmonary Exam: Clear Bilateral Breath Sounds Implantable Cardiac Device Does patient have a Pacemaker or an ICD?: No Airway Exam Known Difficult Airway: No Mallampati Class: 2 Mouth Opening: Normal (> 3cm) Thyromental Distance: Greater than 3 cm Neck Range of Motion: Full ROM Neck Circumference: Normal Teeth Condition: Normal Dentition ASA Classification ASA Score: ASA 2 Emergency Case?: No NPO Status NPO Status: NPO Clears >2 hours, Solids >8 hours Status Status: Negative HCG Anesthesia Plan Resuscitation Status: Full Code Anesthesia Technique: General Anesthesia Airway Planned: Natural Airway Monitors Used: Standard Monitors Preoperative Comments:: 43 yo female for colo. Sig PMHx: LBP, GERD, hypothyroid, smoker, occ cannabis, former EtOH.
[2023-12-25 11:43] VITALS: BP 119/75; PULSE 77; RESP 16; TEMP 36.4; O2SAT 94
[2023-12-25] MEDS: Lactated Ringers 1,000 ML 80 ML IV (11:47)
[2023-12-25 12:29] VITALS: BMI 39.5
--- NOTE | 2023-12-25 13:07 | BOWEL_PTH ---
PATIENT: Justina Augustin LOC: [facility] U#:[id number] AGE/SX: 43/F ROOM: RE12/25/[address]: Wilberto Troncoso MD : 1980 BED: DIS: 12/25/2023 SPEC #: [id number] RECD: 12/25/23 18:23 STATUS: GLADYSKaren RE #: [id number] OTILIA: 12/25/23 13:[address]: Wilberto Troncoso DEPT: Surgical Specimen RECD BY: Iveth Govea ENTERED: 12/25/23 18:24 SP TYPE: Bowel OTHR DR: Vickey Chandra MD Tissues: 1 - BIOPSY BOWEL 2 - BIOPSY BOWEL Procedures: GROSS AND MICRO LEVEL 4 Comments: [id number]
[2023-12-25 13:33] VITALS: BP 112/60; PULSE 72; RESP 16; TEMP 36.1; O2SAT 94
--- NOTE | 2023-12-25 13:45 | W.ANESPOSTOP ---
Postoperative Evaluation Date, Time and Location Date Performed: 12/25/23 Time Performed: 13:46 Patient Location: Day Surgery Unit Vital Signs Most Recent Imported Vital Signs: Most Recent Vital Signs Temp Pulse Resp BP Pulse Ox 36.1 C L 72 16 112/60 94 12/25/23 13:33 12/25/23 13:33 12/25/23 13:33 12/25/23 13:33 12/25/23 13:33 Pain Score Most Recent Pain Score: Most Recent Pain Score Pain Level 0 12/25/23 13:33 Assessment Mental Status: Awake (Alert & Oriented to Patient Baseline) Airway and Respiratory Function: Patent airway with normal (patient baseline) respiratory exam Cardiovascular Function: Hemodynamically Stable Hydration Status: Adequately Hydrated Nausea & Vomiting: No Nausea or Vomiting Pain: Pt. Denies Any Pain Peripheral Nerve Block: Patient did not receive a nerve block
[2023-12-25 14:04] VITALS: BP 105/60; PULSE 75; RESP 16; TEMP 36.4; O2SAT 95
== END 2023-12-25 14:33 | disposition home or self-care (01) ==
LOC: SUR 11:17
PROVIDERS: PCP Family Medicine; Visit Provider Surgery
PROC: 0DJD8ZZ Inspection of Lower Intestinal Tract, Via Natural or Artificial Opening Endoscopic (ICD-10-PCS; CPT 45378; principal; 2023-12-25 13:30)
DX: Z12.11 Encounter for screening for malignant neoplasm of colon (principal); K63.5 Polyp of colon; K64.8 Other hemorrhoids; K57.30 Diverticulosis of large intestine without perforation or abscess without bleeding; K62.1 Rectal polyp
CPT/HCPCS: 45380; 81025; 88305; J2704

== ENCOUNTER → 2023-12-26 01:29 | Outpatient (CLI) | payer MEDICAID, SELFPAY ==
--- NOTE | 2023-12-26 10:55 | DI.MAMMO_ITS ---
Exam(s) MAMMO SCREENING EXAM: MAMMO SCREENING CLINICAL HISTORY: screening,Z12.39. TECHNIQUE: Bilateral full field digital CC and MLO mammographic images were obtained with 3D tomosyn thesis and utilizing computer aided detection (CAD). COMPARISON: None. This is a baseline mammogram FINDINGS: There are no significant focal findings in the left breast. In the right breast there are 2 findings. Anteriorly there is a 5 x 3 millimeter noncalcified well-d efined nodule located 2 cm in from the nipple on the CC view. A 2nd asymmetric densities noted media lly in the breast approximately 7 cm in from the nipple on the CC view, measuring approximately 12 x 7 mm.. Also similar distance in from the nipple on the MLO view. There are no malignant-appearing microcalcification groups in either breast There is no significant architectural distortion nor skin thickening-retraction. IMPRESSION: 1. No radiographic evidence of malignancy in left breast. 2. Two nodular densities in the right breast as described above. Spot compression view and ultrasoun d recommended. BI-RADS Category 0 - Assessment Incomplete: Need additional imaging evaluation Breast Density - Category B - Scattered areas of fibroglandular density Breast density Category C or D implies that the patient has dense breast tissue. Dense breast tissue can make it harder to find cancer on a mammogram. Dense breast tissue is also associated with an incr eased risk of breast cancer. This information about the result of the mammogram report was provided to the patient to raise their awareness. Use this report when you speak with the patient about their risks for breast cancer, which includes their family history. At that time, you may recommend additional screening tests (Ultrasoun d or MRI) as these tests may add significant information. A negative radiographic report should not delay biopsy if a dominant or clinically suspicious mass is present. Up to ten percent of cancers are not identified on mammography. A negative report may reinforce clinical impression. Adenosis and dense breasts may obscure an underlying neoplasm. False positive reports average 6 to 10%. Patient will receive a letter notifying them of these results.
== END ==
PROVIDERS: PCP Family Medicine; Visit Provider Family Medicine
DX: Z12.31 Encounter for screening mammogram for malignant neoplasm of breast (principal); R92.323 Mammographic fibroglandular density, bilateral breasts; R92.8 Other abnormal and inconclusive findings on diagnostic imaging of breast
CPT/HCPCS: 77063; 77067

== ENCOUNTER 2023-12-26 15:19 | Outpatient (CLI) | payer MEDICAID, SELFPAY ==
[2023-12-26 11:33] LABS: D-Dimer 461 ng/mlFEU (<500)
[2023-12-26 11:40] LABS: TSH (W/Ref FT4) 0.01 uIU/mL (0.36-3.74)
[2023-12-26 11:57] LABS: FREE T4 1.61 ng/dL (0.76-1.46)
== END 2023-12-26 15:20 | disposition home or self-care (01) ==
LOC: LBO 15:20
PROVIDERS: PCP Family Medicine; Visit Provider Family Medicine
DX: E03.9 Hypothyroidism, unspecified (principal); R04.2 Hemoptysis
CPT/HCPCS: 36415; 84439; 84443; 85379

== ENCOUNTER → 2023-12-29 01:18 | Outpatient (CLI) | payer MEDICAID, SELFPAY ==
--- NOTE | 2023-12-29 | DI.MAMMO_ITS ---
Exam(s) MG MAMMO SCREEN CALL BACK UNI US BREAST RT COMPLETE EXAM: MG MAMMO SCREEN CALL BACK UNI and U/S breast RT complete CLINICAL HISTORY: F/U ABNL MAMMO, TWO NODULAR DENSITIES RT BREAST. TECHNIQUE: Craniocaudal and mediolateral oblique Full Field Digital Mammography views of the right b reast with Computer Aided Diagnosis followed by Tomosynthesis and right breast ultrasound. COMPARISON: Comparison is made with prior examinations. FINDINGS: Mammography/Tomosynthesis: Masses/Architectural Distortion: The retroareolar nodule in the right breast is well circumscribed an d unchanged. The asymmetric breast tissue in the medial right breast is less concerning on the addit ional views. Microcalcifictions: No suspicious pleomorphic-type are seen. Skin Thickening/Nipple Retraction: None. Complete right breast US: All 4 quadrants of the right breast were evaluated sonographically. The ri ght axilla and right a retroareolar region were also evaluated sonographically. Echotexture: Normal appearance of the glandular tissue. Shadowing: No suspicious foci. Cyst: There is a small 0.4 cm cyst at the 12 o'clock position of the right breast 3 cm from the nippl e. Solid lesions: None seen. Ductal dilation: None. IMPRESSION: 1. No evidence of malignancy is noted. 2. A six-month follow-up right mammogram is requested for re-evaluation. 3. The findings were discussed with the patient on the date of the examination. BI-RADS Category 3 - 6 month - Probably Benign Finding: Recommend follow-up imaging in 6 months Breast Density - Category B - Scattered areas of fibroglandular density Breast density Category C or D implies that the patient has dense breast tissue. Dense breast tissue can make it harder to find cancer on a mammogram. Dense breast tissue is also associated with an incr eased risk of breast cancer. This information about the result of the mammogram report was provided to the patient to raise their awareness. Use this report when you speak with the patient about their risks for breast cancer, which includes their family history. At that time, you may recommend additional screening tests (Ultrasoun d or MRI) as these tests may add significant information. A negative radiographic report should not delay biopsy if a dominant or clinically suspicious mass is present. Up to ten percent of cancers are not identified on mammography. A negative report may reinforce clinical impression. Adenosis and dense breasts may obscure an underlying neoplasm. False positive reports average 6 to 10%. Patient will receive a letter notifying them of these results.
== END ==
PROVIDERS: PCP Family Medicine; Visit Provider Family Medicine
DX: Z12.31 Encounter for screening mammogram for malignant neoplasm of breast (principal); R92.8 Other abnormal and inconclusive findings on diagnostic imaging of breast
CPT/HCPCS: 76642; 77063; 77067

== ENCOUNTER 2024-01-19 09:20 | Day surgery (SDC) | payer MEDICAID, SELFPAY ==
--- NOTE | 2024-01-18 16:48 | PDOC.DSDIS_ITS ---
Date of service: 01/19/24 Time of Service: 10:14 Discharge Plan Disposition Patient Disposition: Home Condition: Good Discharge Details Reason For Visit: stomach scope Attending Provider: Syeda Mina Primary Care Provider: Vickey Chandra Home Meds and New Rx's Prescriptions: No Action omeprazole 40 mg capsule,delayed release(DR/EC) 40 mg PO DAILY Qty: 90 3RF ondansetron HCl 4 mg tablet 4 mg PO Q8H PRN (Reason: nausea and vomiting) Qty: 60 0RF levothyroxine [Synthroid] 200 mcg tablet 200 mcg PO .Daily except Monday Qty: 90 0RF Rx Instructions: take daily along with 75mcg tablet. Estroven Cmplt Menopause Rlf 4 mg tablet 4 mg PO HS Discharge Instructions Instructions: Gastritis (DC) Additional Instructions: Post EGD Instruction ?You had anesthesia for your EGD/stomach scope today.? For your safety, please do the following for the next twenty-four (24) hours: Do Not operate a motor vehicle (car, truck, motorcycle, etc.) Do Not drink alcoholic beverages or use any recreational drugs for the first 24 hours or while taking pain medications. The medications in your body may have a reaction that can be dangerous. Do Not make any important decisions or sign any important papers You have just had a gastroscopy (EGD) or upper GI tract examination. It is important for your smooth recovery that you carefully follow the recommendations below. Do not hesitate to call if any questions should arise about your anesthesia, condition, or care. -Symptoms you may experience during the next 24 hours: ?1. Mild abdominal pain or excessive gas or a bloated feeling which improves with rest, liquids, eating? slightly, and walking as tolerated. 2. Drowsiness and/or forgetfulness because of the medications you were given. ?3. Throat numbness for about 1 hour. 4. A sore throat which you can treat with throat lozenges or by gargling with salt water 4-5 times a day. 5. Redness at the site of your IV which you can treat with warm compresses. SPECIAL INSTRUCTIONS: 1. You may resume your previous diet in one hour. We recommend a light meal to start, then progress as tolerated. 2. Restart regular medications in one hour. 3. No aspirin or non-steroidal containing medication for three days. 4. No lifting over 20 pounds or strenuous activity for the first 24 hours after your procedure. After 24 hours there are no restrictions on your activity, but you may feel fatigued for a few days. Findings: mild gastritis Treatment: -Medications: Protonix -Continue to follow lifestyle modifications: No alcohol, tobacco products, Aspirin or NSAID's (ibuprofen, Motrin, Naprosyn, aleve, etc).? Try to limit/avoid:? soda pop/any carbonated beverages, caffeine (including tea & chocolate), and acidic foods, (tomatoes, citrus, onions, peppermints) spicy or fried/fatty foods. Do not lie down for 30 minutes after eating, and do not eat 2 hours prior to bedtime. Avoid wearing tight fitting clothing/ belts. Follow up: -My office will send a letter with the results of your biopsy?s in 2-3wks time. Call the office at [phone] (Office) or [phone] (Hospital), or go to the ER right away if you notice any of the followin. Vomiting blood and /or ?coffee ground? material. ?2. Worsening of abdominal pain or cramping. ?3. Trouble with breathing, cough, and/or fever (temperature above 101.5 F). 4. Increasing pain with swallowing. ?5. Chest pain. 6. Any new symptoms. 7. Worsening of the redness at the IV site Activity:: see above Diet:: see above Discharge Orders Discharge Orders: Discharge Order (Routine); Ordered 01/19/24 Ordered By: Syeda Mina DS: Diagnosis Discharge Diagnosis (1) Depression: Status: Chronic (2) Hypothyroidism: Status: Chronic (3) GERD (gastroesophageal reflux disease): Status: Chronic Asessment and Plan: Patient is seen and examined after they are endoscopy.? Patient has minimal sore throat.? They have been able to tolerate liquids.? They do not have any nausea vomiting.? They are not having any chest pain or shortness of breath.? They have been able to pass gas and are not having any abdominal pain or distention.? They have not vomited any blood.? The vital signs have been stable-see nursing notes. We discussed findings on their endoscopy. We reviewed the importance of lifestyle modification-see discharge instructions We reviewed any new medications that the patient may be prescribed-see discharge instructions Patient will either be sent a letter with the biopsy results or follow-up in the office-see discharge instructions. Patient was given explicit instructions to follow-up regarding post endoscopy- refer to discharge Patient verbalized understanding and discharged in stable and satisfactory condition.? See nursing notes. (4) Diarrhea: Status: Acute (5) Diverticula, colon: Status: Acute (6) Urinary incontinence: Status: Chronic (7) Tobacco abuse: Status: Acute (8) Obese: (9) Chronic lumbar pain: (10) Mild chronic gastritis: Status: Acute
--- NOTE | 2024-01-18 16:48 | W.PM.ENDDOP ---
Date of service: 01/19/24 Time of Service: 10:02 Endoscopy Report DATE OF PROCEDURE: 01/19/24 PRE-OP DIAGNOSIS: GERD POST-OP DIAGNOSIS: other (mild gaatritis ) SURGEON: Syeda Mina ANESTHESIA TYPE: General:No Airway ESTIMATED BLOOD LOSS: 1 PATHOLOGY: other COMPLICATIONS: None DISPOSITION: no change PROCEDURE DESCRIPTION: After informed consent was obtained the patient was take to the procedure room and placed in a supine position. Monitors were applied and a time out was done. The patients name, date of , procedure type, allergies to medications and metal in their body was reviewed. A bite block was placed and the patient was sedated. Once sedated and comfortable the gastroscope was advanced through the oropharynx which was grossly normal into the esophagus. The proximal and mid-esophagus were normal. There is no esophageal erosions/varices/diverticula or stricture noted at the GE junction.. The scope was advanced into the stomach and through the pylorus into the 3rd portion of the duodenum. The duodenum was noted to be normal. l Biopsies were done, all specimens are retrieved and no bleeding is noted.. The scope was retracted back into the stomach and biopsies were done to rule out H. pylori. There were no ulcers. She has some mild gastritis radiating from the antrum in a striped fashion. The scope Was retroflexed. The cardia and fundus were noted to be normal. There is no hiatal hernia noted. The scope was retracted back into the esophagus and biopsies were done of the GE junction to rule out Johnson's. The Z line was regular. The GE junction was at 38 cm. The scope was removed and the patient was woken up and taken back to [facility] in stable condition.
--- NOTE | 2024-01-19 08:55 | BOWEL_PTH ---
PATIENT: Justina Augustin LOC: [facility] U#:[id number] AGE/SX: 43/F ROOM: RE01/19/[address]: Syeda Mina : 1980 BED: DIS: 01/19/2024 SPEC #: [id number] RECD: 01/19/24 12:59 STATUS: LISA RE #: [id number] OTILIA: 01/19/24 08:[address]: Syeda Mina DEPT: Surgical Specimen RECD BY: Iveth Govea ENTERED: 01/19/24 13:02 SP TYPE: Bowel OTHR DR: Vickey Chandra MD Tissues: 1 - BIOPSY BOWEL 2 - STOMACH BIOPSY 3 - STOMACH BIOPSY 4 - ESOPHAGUS BIOPSY 5 - ESOPHAGUS BIOPSY Procedures: GROSS AND MICRO LEVEL 4 Comments: [id number]
[2024-01-19 09:25] VITALS: BP 127/73; PULSE 75; RESP 16; TEMP 36.2; O2SAT 96
[2024-01-19] MEDS: Lactated Ringers 1,000 ML 80 ML IV (09:43)
--- NOTE | 2024-01-19 09:45 | W.ANESPRE ---
General Info Date of Service Date Performed: 01/19/24 Height: 5 ft 7 in Weight: 114.9 kg Body Mass Index (BMI): 39.6 Surgical Procedure: Operation Date: 01/19/24 09:50 Proposed Procedure Side Surgeon p Gastroscopy Syeda Mina, Meds Allergies and Home Medications Allergies Allergy/AdvReac Type Severity Reaction Status Date / Time hornet venom Allergy Severe Anaphylaxsi Verified 01/19/24 09:30 s Opioids - Morphine Analogues Allergy Severe hives Verified 01/18/24 10:40 aspirin Allergy Hives Verified 01/19/24 09:30 hydrocodone bitartrate Allergy Skin Rash Verified 01/19/24 09:30 [From Vicodin] metronidazole AdvReac Intermediate Itchy rash Verified 01/19/24 09:30 on her neck, nausea and fatigue rhiannon Allergy Intermediate hives Uncoded 01/19/24 09:30 Home Medication Medication Instructions Recorded omeprazole 40 mg capsule,delayed 40 mg PO DAILY #90 caps 09/13/23 release levothyroxine 200 mcg tablet 200 mcg PO .Daily except Monday11/18/23 (Synthroid) #90 tab-caps ondansetron HCl 4 mg tablet 4 mg PO Q8H PRN nausea and 12/15/23 vomiting #60 tabs rhubarb root extract 4 mg tablet 4 mg PO HS 12/25/23 (Estroven Complete Menopause Relief) Current Visit Medications: Current Medications Generic Name Dose Route Start Last Admin Trade Name Freq PRN Reason Stop Dose Admin Hyoscyamine Sulfate 0.125 mg 01/19/24 03:19 Hyoscyamine 0.125 Mg Sl/Oral/Chew SL 02/18/24 03:18 DIRECTED PRN Ringer's Solution 1,000 mls @ 80 mls/hr 01/19/24 06:00 01/19/24 09:43 IV 02/17/24 23:59 80 mls/hr INFUSION CESARIO Administration IV Miscellaneous Supplies 1 each 01/19/24 06:00 Iv Access IV 02/17/24 23:59 DIRECTED CESARIO Ondansetron HCl 4 mg 01/19/24 03:19 Ondansetron 4 Mg/2 Ml Vial IVP 02/18/24 03:18 Q4H PRN PRN Nausea / Vomiting Sodium Chloride 0 ml 01/19/24 06:00 Normal Saline Flush 10 Ml Syr IV 02/17/24 23:59 PRN PRN Sodium Chloride 0 ml 01/19/24 06:00 Normal Saline 10 Ml Vial IJ 02/17/24 23:59 DIRECTED PRN Sterile Water 0 ml 01/19/24 06:00 Water,Injection,Sterile 10 Ml Vial IJ 02/17/24 23:59 DIRECTED PRN PFSH Active Problems Active Problems: Problem Status Onset Code Hyperplastic colon polyp ~12/25/23 K63.5 Hemoptysis R04.2 Blood in stool K92.1 Dizziness R42 Paresthesia R20.2 Diverticula, colon K57.30 Diarrhea R19.7 Bee sting reaction Abnormal uterine bleeding (AUB) 09/13/17 N93.9 Chronic lumbar pain 10/02/14 M54.5, G89.29 Depression 10/02/14 F32.9 Hypothyroidism 10/02/14 E03.9 Seborrheic dermatitis 10/03/17 L21.9 Urinary incontinence 10/02/14 R32 Fall W19.XXXA Strain of left knee S86.912A Positive test for human papillomavirus (HPV) Headache R51 URI (upper respiratory infection) J06.9 GERD (gastroesophageal reflux disease) K21.9 Amenorrhea N91.2 Abdominal pain R10.9 UTI (urinary tract infection) N39.0 Tobacco abuse Z72.0 Vaginitis N76.0 Coccygeal contusion S30.0XXA Contusion of hand, right S60.221A Fracture of scaphoid of right wrist 08/04/21 S62.001A Ganglion cyst of dorsum of right wrist M67.431 Medical History Medical History Encounter for screening colonoscopy Screen for colon cancer COVID 07/25/22-is vaccinated Obese Tobacco use longstanding. has quit during pregnancies Hypothyroidism 14yo. On chronic replacement. Depression Chronic lumbar pain s/p L5-S1 surgery. recurrent sx. s/p [facility] pain clinic eval. Oxycodone daily. Lyrica TID. Urinary incontinence worse with coughing and sneezing. Medical History Comments:: Pt. states a while ago she said she could hear everybody but could not open her eyes. Pt. states that she has had procedures since then and it has not happened. She states she does not remember which procedure this happened on if it was her gallbladder or appendix Surgical History Surgical History History of colonoscopy (~11/2023) biopsies History of back surgery L5-S1 Ligation of fallopian tube 2002 interval tubal. Spinal Fusion 2007 for slipped disk at [facility] Oophrectomy, Right 2006 Dr Neves Dilation and curettage (05/27/05) Cholecystectomy Biopsy 05/27/05-left ovarian Appendectomy 2004 Tobacco Smoking/Tobacco Use Status: Former Tobacco Use Passive smoking exposure: No Second hand exposure: No Alcohol Alcohol Intake: current Alcohol intake frequency: holidays/special occasions only Alcohol type: wine Substance Use Substance use: Occasionally Substance use type: marijuana Prental History History 4 Para Hx # Term Pregnancies 4 Multiple births Hx # Pregnancies Ectopic pregnancies AB induced Hx Number of Living Children AB spontaneous Vital Signs and Lab Results Vital Signs Most Recent Vital Signs in EMR: Most Recent Vital Signs Temp Pulse Resp BP Pulse Ox 36.2 C L 75 16 127/73 96 01/19/24 09:25 01/19/24 09:25 01/19/24 09:25 01/19/24 09:25 01/19/24 09:25 Point of Care Results Point of Care Results: POC- Test(urine) Negative 01/19/24 09:35 Lab Results Blood Type / Crossmatch: No Data to Display Complete Blood Count: No Data to Display Complete Metabolic Panel: No Data to Display Liver Function Panel: No Data to Display Coagulation Panel: D-Dimer 461 ng/mlFEU (<500) 12/26/23 10:35 Cardiac Panel: No Data to Display Arterial Blood Gas: No Data to Display Venous Blood Gas: No Data to Display Pancreas Panel: No Data to Display Thyroid Panel: Thyroid Stimulating Hormone (TSH) 0.01 uIU/mL (0.36-3.74) L 12/26/23 10:35 Infectious Disease: Neisseria gonorrhoeae DNA Probe Negative (Negative) 12/20/23 15:40 Blood Cultures: No Data to Display Toxicology Panel: No Data to Display Panel: No Data to Display Anesthesia Assessment and Plan Anesthesia History Personal History: Awareness Under Anesthesia Family History: No Family History of Anesthesia Complications Exercise Tolerance Exercise Tolerance: Metabolic Equivalents>4 Pertinent Negatives Pertinent Negatives: No Symptoms of GERD Cardiac & Pulmonary Exam Cardiac Exam: Normal S1/S2 Heart Sounds Pulmonary Exam: Clear Bilateral Breath Sounds Implantable Cardiac Device Does patient have a Pacemaker or an ICD?: No Airway Exam Known Difficult Airway: No Mallampati Class: 2 Mouth Opening: Normal (> 3cm) Thyromental Distance: Greater than 3 cm Neck Range of Motion: Full ROM Neck Circumference: Normal Teeth Condition: Normal Dentition ASA Classification ASA Score: ASA 2 Emergency Case?: No NPO Status NPO Status: NPO Clears >2 hours, Solids >8 hours Status Status: Not Relevant due to Medical History Anesthesia Plan Resuscitation Status: Full Code Anesthesia Technique: General Anesthesia Airway Planned: Natural Airway Monitors Used: Standard Monitors
[2024-01-19 09:47] VITALS: BMI 39.6
[2024-01-19 10:10] VITALS: BP 99/68; PULSE 68; RESP 16; TEMP 36.4; O2SAT 93
--- NOTE | 2024-01-19 10:15 | W.ANESPOSTOP ---
Postoperative Evaluation Date, Time and Location Date Performed: 01/19/24 Time Performed: 10:16 Patient Location: Day Surgery Unit Vital Signs Most Recent Imported Vital Signs: Most Recent Vital Signs Temp Pulse Resp BP Pulse Ox 36.2 C L 75 16 127/73 96 01/19/24 09:25 01/19/24 09:25 01/19/24 09:25 01/19/24 09:25 01/19/24 09:25 Assessment Mental Status: Awake (Alert & Oriented to Patient Baseline) Airway and Respiratory Function: Patent airway with normal (patient baseline) respiratory exam Cardiovascular Function: Hemodynamically Stable Hydration Status: Adequately Hydrated Nausea & Vomiting: No Nausea or Vomiting Pain: Pt. Denies Any Pain Peripheral Nerve Block: Patient did not receive a nerve block
--- NOTE | 2024-01-19 10:18 | W.PM.DSUDISC ---
Date of service: 01/19/24 Time of Service: 10:20 Discharge Plan Disposition Patient Disposition: Home Condition: Good Discharge Details Reason For Visit: stomach scope Attending Provider: Syeda Mina Primary Care Provider: Vickey Chandra Home Meds and New Rx's Prescriptions: New pantoprazole [Protonix] 40 mg tablet,delayed release (DR/EC) 40 mg PO DAILY Qty: 90 4RF Continued ondansetron HCl 4 mg tablet 4 mg PO Q8H PRN (Reason: nausea and vomiting) Qty: 60 0RF levothyroxine [Synthroid] 200 mcg tablet 200 mcg PO .Daily except Monday Qty: 90 0RF Rx Instructions: take daily along with 75mcg tablet. Estroven Cmplt Menopause Rlf 4 mg tablet 4 mg PO HS Discontinued omeprazole 40 mg capsule,delayed release(DR/EC) 40 mg PO DAILY Qty: 90 3RF Discharge Instructions Instructions: Gastritis (DC) Additional Instructions: Post EGD Instruction ?You had anesthesia for your EGD/stomach scope today.? For your safety, please do the following for the next twenty-four (24) hours: Do Not operate a motor vehicle (car, truck, motorcycle, etc.) Do Not drink alcoholic beverages or use any recreational drugs for the first 24 hours or while taking pain medications. The medications in your body may have a reaction that can be dangerous. Do Not make any important decisions or sign any important papers You have just had a gastroscopy (EGD) or upper GI tract examination. It is important for your smooth recovery that you carefully follow the recommendations below. Do not hesitate to call if any questions should arise about your anesthesia, condition, or care. -Symptoms you may experience during the next 24 hours: ?1. Mild abdominal pain or excessive gas or a bloated feeling which improves with rest, liquids, eating? slightly, and walking as tolerated. 2. Drowsiness and/or forgetfulness because of the medications you were given. ?3. Throat numbness for about 1 hour. 4. A sore throat which you can treat with throat lozenges or by gargling with salt water 4-5 times a day. 5. Redness at the site of your IV which you can treat with warm compresses. SPECIAL INSTRUCTIONS: 1. You may resume your previous diet in one hour. We recommend a light meal to start, then progress as tolerated. 2. Restart regular medications in one hour. 3. No aspirin or non-steroidal containing medication for three days. 4. No lifting over 20 pounds or strenuous activity for the first 24 hours after your procedure. After 24 hours there are no restrictions on your activity, but you may feel fatigued for a few days. Findings: mild gastritis Treatment: -Medications: Protonix -Continue to follow lifestyle modifications: No alcohol, tobacco products, Aspirin or NSAID's (ibuprofen, Motrin, Naprosyn, aleve, etc).? Try to limit/avoid:? soda pop/any carbonated beverages, caffeine (including tea & chocolate), and acidic foods, (tomatoes, citrus, onions, peppermints) spicy or fried/fatty foods. Do not lie down for 30 minutes after eating, and do not eat 2 hours prior to bedtime. Avoid wearing tight fitting clothing/ belts. Follow up: -My office will send a letter with the results of your biopsy?s in 2-3wks time. Call the office at [phone] (Office) or [phone] (Hospital), or go to the ER right away if you notice any of the followin. Vomiting blood and /or ?coffee ground? material. ?2. Worsening of abdominal pain or cramping. ?3. Trouble with breathing, cough, and/or fever (temperature above 101.5 F). 4. Increasing pain with swallowing. ?5. Chest pain. 6. Any new symptoms. 7. Worsening of the redness at the IV site Activity:: see above Diet:: see above Discharge Orders Discharge Orders: Discharge Order (Routine); Ordered 01/19/24 Ordered By: Syeda Mina DS: Diagnosis Discharge Diagnosis (1) Depression: Status: Chronic (2) Hypothyroidism: Status: Chronic (3) GERD (gastroesophageal reflux disease): Status: Chronic (4) Diarrhea: Status: Acute (5) Diverticula, colon: Status: Acute (6) Urinary incontinence: Status: Chronic (7) Tobacco abuse: Status: Acute (8) Obese: (9) Chronic lumbar pain: (10) Mild chronic gastritis: Status: Acute
[2024-01-19 10:40] VITALS: BP 108/70; PULSE 62; RESP 16; TEMP 36.7; O2SAT 96
== END 2024-01-19 11:12 | disposition home or self-care (01) ==
LOC: SUR 09:21
PROVIDERS: PCP Family Medicine; Visit Provider Surgery
PROC: 0DJ68ZZ Inspection of Stomach, Via Natural or Artificial Opening Endoscopic (ICD-10-PCS; CPT 43235; principal; 2024-01-19 09:45)
DX: K29.70 Gastritis, unspecified, without bleeding (principal); K21.9 Gastro-esophageal reflux disease without esophagitis; E03.9 Hypothyroidism, unspecified; F17.210 Nicotine dependence, cigarettes, uncomplicated; Z79.899 Other long term (current) drug therapy; K31.89 Other diseases of stomach and duodenum; K22.89 Other specified disease of esophagus
CPT/HCPCS: 43239; 81025; 88305; J2001; J2704

== ENCOUNTER 2024-03-06 10:27 | Outpatient (CLI) | payer MEDICAID, SELFPAY ==
[2024-03-06 12:38] LABS: Abs Immature Grans 0.02 10^3/uL (0.0-0.06); Absolute Basophil Count 0.07 10^3/uL (0.0-0.2); Absolute Eosinophil Count 0.33 10^3/uL (0.0-0.7); Absolute Lymphocyte Count 2.67 10^3/uL (1.2-3.4); Absolute Monocyte Count 0.42 10^3/uL (0.1-0.8); Absolute Neutrophil Count 3.41 10^3/uL (1.2-6.7); Eosinophils % 4.8; HCT 39.4 % (36.0-46.0); HGB 13.4 g/dL (11.2-15.7); Immature Grans % 0.3; Lymphocytes % 38.6; MCH 30.7 pg (27.0-33.0); MCV 90 fL (80-95); MPV 9.7 fL (8.0-11.0); Monocytes % 6.1; Neutrophils % 49.2; Platelet Count 357 10^3/uL (130-400); RBC 4.36 10^6/uL (3.93-5.22); RDW 12.6 % (11.7-14.6); WBC 6.92 10^3/uL (4.4-10.8)
[2024-03-06 13:34] LABS: TSH (W/Ref FT4) 0.03 uIU/mL (0.36-3.74)
[2024-03-06 14:16] LABS: FREE T4 1.44 ng/dL (0.76-1.46)
== END 2024-03-06 10:28 | disposition home or self-care (01) ==
LOC: LOS 10:27
PROVIDERS: PCP Family Medicine; Referring Provider Family Medicine; Visit Provider Family Medicine
DX: E03.9 Hypothyroidism, unspecified (principal); D64.9 Anemia, unspecified
CPT/HCPCS: 36415; 84439; 84443; 85025

== ENCOUNTER → 2024-05-28 02:14 | Outpatient (CLI) | payer MEDICAID, SELFPAY ==
--- NOTE | 2024-05-28 06:45 | DI.US_ITS ---
Exam(s) US ABD PELV TRANSVAG NON-OB EXAM: US ABD PELV TRANSVAG NON-OB CLINICAL HISTORY: left ovarian cysts on CT; left abd pain,n83.202 TECHNIQUE: Ultrasound of the abdomen and pelvis was performed both transabdominal and transvaginal. COMPARISON: Prior CT scan 08/04/2023. FINDINGS: ABDOMEN: There is no ascites evident. LIVER: There are no hepatic lesions evident nor obvious dilatation of intrahepatic ducts. GALLBLADDER/BILIARY: Gallbladder surgically absent The common hepatic duct isupper normal, measuring 7mm at the level of quinn hepatis. PANCREAS: There is no evidence of pancreatic mass nor dilatation of the pancreatic duct. SPLEEN: The spleen is not enlarged and there are no intrasplenic lesions evident. KIDNEYS:Kidneys exhibit normal size with no evidence of solid mass, calculus, nor hydronephrosis. No cortical cysts evident. ABDOMINAL AORTA: There is no evidence of abdominal aortic aneurysm. IVC: Normal diameter where visualized. PELVIS: UTERUS: Measures 9.7 cm length x 4.7 cm AP x 5.5 cm wide. There are no uterine fibroids. Endometrial thickness measures 6 mm. There is no fluid in the endometrial canal. CERVIX: There are no obvious nabothian cysts. RIGHT OVARY: The right ovary is surgically absent. masses evident in the right ovary. LEFT OVARY: Measures 3.2 x 2.1 x 2.5 cm There is a mildly complex partially exophytic cyst in left ovary which measures 2.2 x 1.8 x 2.0 cm. CUL-DE-SAC: No free fluid evident. IMPRESSION: 1. The gallbladder surgically absent. The biliary tree is not dilated. 2. No other significant ultrasound findings in the upper abdomen. 3. The right ovary is surgically absent. 4. There is a mildly complex cyst in left ovary measuring 22 x 18 x 20 mm. No free fluid. 5. Uterus appears unremarkable. 6. No free fluid evident in the adnexal regions and cul-de-sac. 7. No ascites in the upper abdomen DATA REPOSITORY:
== END ==
PROVIDERS: PCP Family Medicine; Visit Provider Family Medicine
DX: N83.202 Unspecified ovarian cyst, left side (principal)
CPT/HCPCS: 76700; 76830; 76856

== ENCOUNTER → 2024-07-03 01:54 | Outpatient (CLI) | payer MEDICAID, SELFPAY ==
--- NOTE | 2024-07-03 07:15 | DI.MAMMO_ITS ---
Exam(s) MG MAMMO DIAGNOSTIC UNI US BREAST RT COMPLETE EXAM: MG MAMMO DIAGNOSTIC UNI-RIGHT AND COMPLETE RIGHT BREAST ULTRASOUND CLINICAL HISTORY: 6 month follow up rt breast nodule,r92.8,z09. TECHNIQUE: Unilateral RIGHT BREAST CC AND MLO mammographic images were obtained with 3D tomosynthesi s technique and utilizing computer aided detection (CAD). COMPLETE RIGHT BREAST ULTRASOUND was performed including all 4 quadrants as well as the right axilla. COMPARISON: Prior mammograms were reviewed, the most recent being 12/26/2023 and the diagnostic stud ies performed 12/29/2023.. FINDINGS: DIAGNOSTIC RIGHT BREAST MAMMOGRAM: The anteriorly located small benign-appearing nodule is unchanged. This was shown to be a small micr ocyst on prior ultrasound examination of 12/29/2023. Other asymmetric densities located more medially in the right breast are also unchanged from the base line mammogram of 12/26/2023. There are no new spiculated masses nor malignant-appearing microcalcification groups in the right donta ast. There is no new significant architectural distortion or skin thickening-retraction. THE RIGHT BREAST ULTRASOUND: Previously described 4 millimeter benign microcyst at the 12-1 o'clock position is unchanged and vanesa esponds to the benign-appearing nodule on the mammogram There are no other focal ultrasound findings to correspond to the other more medially located finding s on the mammogram implying that they are probably benign intramammary lymph nodes. Most importantly, there are no solid lesions seen in all 4 quadrants of the right breast. Scanning of the right axilla is negative for significant adenopathy IMPRESSION: 1. Stable benign-appearing right breast mammographic findings. 2. Stable benign-appearing right breast ultrasound finding. Appropriate follow-up is to give this patient on a yearly mammogram schedule, implying the next [facility] mammogram would be in November or December 2024, with earlier imaging if a self detected breast c hange is noted. The patient was informed of the findings and follow-up recommendations prior to leaving the [facility]. BI-RADS Category 2 - Benign Findings Breast Density - Category B - Scattered areas of fibroglandular density Breast density Category C or D implies that the patient has dense breast tissue. Dense breast tissue can make it harder to find cancer on a mammogram. Dense breast tissue is also associated with an incr eased risk of breast cancer. This information about the result of the mammogram report was provided to the patient to raise their awareness. Use this report when you speak with the patient about their risks for breast cancer, which includes their family history. At that time, you may recommend additional screening tests (Ultrasoun d or MRI) as these tests may add significant information. A negative radiographic report should not delay biopsy if a dominant or clinically suspicious mass is present. Up to ten percent of cancers are not identified on mammography. A negative report may reinforce clinical impression. Adenosis and dense breasts may obscure an underlying neoplasm. False positive reports average 6 to 10%. Patient will receive a letter notifying them of these results.
--- NOTE | 2024-07-03 07:25 | DI.US_ITS ---
Exam(s) MG MAMMO DIAGNOSTIC UNI US BREAST RT COMPLETE EXAM: MG MAMMO DIAGNOSTIC UNI-RIGHT AND COMPLETE RIGHT BREAST ULTRASOUND CLINICAL HISTORY: 6 month follow up rt breast nodule,r92.8,z09. TECHNIQUE: Unilateral RIGHT BREAST CC AND MLO mammographic images were obtained with 3D tomosynthesi s technique and utilizing computer aided detection (CAD). COMPLETE RIGHT BREAST ULTRASOUND was performed including all 4 quadrants as well as the right axilla. COMPARISON: Prior mammograms were reviewed, the most recent being 12/26/2023 and the diagnostic stud ies performed 12/29/2023.. FINDINGS: DIAGNOSTIC RIGHT BREAST MAMMOGRAM: The anteriorly located small benign-appearing nodule is unchanged. This was shown to be a small micr ocyst on prior ultrasound examination of 12/29/2023. Other asymmetric densities located more medially in the right breast are also unchanged from the base line mammogram of 12/26/2023. There are no new spiculated masses nor malignant-appearing microcalcification groups in the right donta ast. There is no new significant architectural distortion or skin thickening-retraction. THE RIGHT BREAST ULTRASOUND: Previously described 4 millimeter benign microcyst at the 12-1 o'clock position is unchanged and vanesa esponds to the benign-appearing nodule on the mammogram There are no other focal ultrasound findings to correspond to the other more medially located finding s on the mammogram implying that they are probably benign intramammary lymph nodes. Most importantly, there are no solid lesions seen in all 4 quadrants of the right breast. Scanning of the right axilla is negative for significant adenopathy IMPRESSION: 1. Stable benign-appearing right breast mammographic findings. 2. Stable benign-appearing right breast ultrasound finding. Appropriate follow-up is to give this patient on a yearly mammogram schedule, implying the next [facility] mammogram would be in November or December 2024, with earlier imaging if a self detected breast c hange is noted. The patient was informed of the findings and follow-up recommendations prior to leaving the [facility]. BI-RADS Category 2 - Benign Findings Breast Density - Category B - Scattered areas of fibroglandular density Breast density Category C or D implies that the patient has dense breast tissue. Dense breast tissue can make it harder to find cancer on a mammogram. Dense breast tissue is also associated with an incr eased risk of breast cancer. This information about the result of the mammogram report was provided to the patient to raise their awareness. Use this report when you speak with the patient about their risks for breast cancer, which includes their family history. At that time, you may recommend additional screening tests (Ultrasoun d or MRI) as these tests may add significant information. A negative radiographic report should not delay biopsy if a dominant or clinically suspicious mass is present. Up to ten percent of cancers are not identified on mammography. A negative report may reinforce clinical impression. Adenosis and dense breasts may obscure an underlying neoplasm. False positive reports average 6 to 10%. Patient will receive a letter notifying them of these results.
== END ==
PROVIDERS: PCP Family Medicine; Visit Provider Family Medicine
DX: R92.8 Other abnormal and inconclusive findings on diagnostic imaging of breast
CPT/HCPCS: 76642; 77061; 77065; G0279

== ENCOUNTER 2024-11-11 01:05 | Outpatient (CLI) | payer MEDICAID, SELFPAY ==
--- NOTE | 2024-11-11 07:00 | DI.RAD_ITS ---
Exam(s) XR LUMBAR SPINE COMPLETE EXAM: XR LUMBAR SPINE COMPLETE CLINICAL HISTORY: timmy foot numbness,back pain,m54.9. TECHNIQUE: 2D digital imaging was performed of the lumbar spine. Six images were obtained. AP, lat eral, right oblique, left oblique and L5-S1 spot views were obtained. COMPARISON: CR,XR XR LUMBAR SPINE AP, LAT from 07/15/2021 FINDINGS: BONES: No fracture or destructive lesion. Small endplate osteophytes are seen at multiple levels in t he lumbar spine. No facet hypertrophy identified. There again seen postsurgical changes at L5-S1. DISKS: Intervertebral disc spaces are maintained. ALIGNMENT: Lumbar spinal alignment is within normal limits. No spondylolysis or spondylolisthesis. SOFT TISSUE: There surgical clips again seen in the right upper quadrant in the right lower quadrant. IMPRESSION: 1. No acute abnormality. 2. Minimal degenerative changes seen in the lumbar spine. 3. Stable postsurgical changes at L5-S1. DATA REPOSITORY: RADIATION DOSE DELIVERED:
--- NOTE | 2024-11-11 07:07 | DI.NM_ITS ---
APPROVED REPORT Exam: Exercise Treadmill Patient Location: Out-Patient Room/Bed: Stress Nurse: Aleshia Urbina RN Ordering Provider:BYRON GAYLE, Contact Number: [phone] BMI: 38.21 Baseline Rhythm: Sinus Bradycardia Indications: chest pain Medical History Medical History: adjustment disorder with anxious mood, depression, hypothyroidism, GERD, obesity Cardiac Medications: duloxetine, estradiol patch, levothyroxine, omeprazole, zofran, phentermine, pro metrium Allergies: opioids, hornet venom, vicodin, rhiannon, metronidazole Cardiac Risk Factors: family hx, former smoker, obesity Previous Cardiac Procedures: none Pretest Chest Pain Characteristics: No chest pain Exercise History: Physically active Physical Disabilities: none Lung Sounds: Clear to auscultation Heart Sounds: Regular Stress Test Details Test: Exercise stress testing was performed using a Guillaume protocol. Rest Isotope: Tc-99m Sestamibi. Dose: 12.0 Date: 11/11/2024 Injection Time: 0835 Stress Isotope: Tc-99m Sestamibi. Dose: 36.0 Date: 11/11/2024 Injection Time: 1015 HR Resting HR Supine: 49 bpm Max Heart Rate (APMHR): 174 bpm Resting HR Standin bpm Target HR (85% APMHR): 148 bpm Max HR Achieved: 156 bpm % of APMHR: 90 Recovery HR: 73 bpm HR response to stress: Normal HR response to stress BP Resting BP Supine: 116/58 mmHg Resting BP Standin/80 mmHg Max BP: 140/70 mmHg Recovery BP: 90/60 mmHg BP response to stress: Normal blood pressure response to stress. ECG Resting ECG: Sinus Bradycardia Stress ECG: Sinus Tachycardia ST Change: No significant ST segment changes noted Arrhythmia: rare PVC Recovery ECG: Sinus Rhythm Recovery ST Change: No significant ST segment changes noted Recovery Arrhythmia: None Clinical Reason for Termination: Target HR Achieved Exercise duration: 08 min33 sec Highest Stage Reached: Stage 3: 3.4 mph at 14% grade. Exercise capacity: 10.16 METs Angina Score: None Villalpando Treadmill Score: 8.5 Rate Pressure Product: [id number] Stress ECG Conclusion 1. Resting electrocardiogram was normal 2. Patient exercised on the Guillaume protocol and completed workload of 10 METS 3. Normal heart rate and blood pressure response to exercise. The patient achieved 90% of predicted heart rate for age 4. There was no electrocardiographic evidence of myocardial ischemia 5. See MPI report Villalpando Treadmill Score is 8.5 which is Low risk. Stress Test Summary STAGE Time (mins) Speed (mph) Grade (%) HR BP SpO2 SYMPTOMS METS Supine 49 116/58 95 Standing 63 112/80 1 3 1.7 10 103 4.5 2 6 2.5 12 117 7 3 9 3.4 14 154 10 1 min recovery 121 140/70 3 min recovery 85 116/58 98 6 min recovery 73 90/60 95 MPI Conclusion Myocardial perfusion is normal. There is no ischemia or evidence of prior infarction Ejection fraction is 57% with normal wall motion
== END 2024-11-11 01:25 ==
LOC: DI 01:05
PROVIDERS: PCP Family Medicine; Visit Provider Family Medicine
DX: Z98.890 Other specified postprocedural states (principal); R07.9 Chest pain, unspecified; M51.372 Other intervertebral disc degeneration, lumbosacral region with discogenic back pain and lower extremity pain
CPT/HCPCS: 78452; 72110; 93017

== ENCOUNTER 2024-12-05 03:52 | Outpatient (CLI) | payer MEDICAID, SELFPAY ==
--- NOTE | 2024-12-05 07:45 | DI.MRI_ITS ---
Exam(s) MR LUMBAR SPINE WO EXAM: MR LUMBAR SPINE WO CLINICAL HISTORY: low back pain with radiculopathy,m54.50. TECHNIQUE: Multiplanar multisequence MRI of the Lumbar spine was performed. COMPARISON: CR XR LUMBAR SPINE COMPLETE from 11/11/2024 FINDINGS: Bones: The last intervertebral disc space is designated the L5/S1 level for the numbering purpose of this examination. The vertebral body heights are well maintained. Alignment is satisfactory. There is posterior spinal fixation again seen at L5-S1 with an disc fusion at L5-S1. Mild degenerative endp late signal changes are seen. Cord: The conus tip ends at the T12-L1 level. It is of normal size and signal intensity. T12-L1: No disc herniations or bulges are present. No central spinal canal or neural foraminal stenos is. L1-2: No disc herniations or bulges are present. No central spinal canal or neural foraminal stenosis . L2-3: There is an asymmetric disc bulge at this level with extension into the right neural foramen. There is no significant neural foraminal stenosis. No significant central spinal canal or left neura l foraminal stenosis is seen. L3-4: No disc herniations or bulges are present. No central spinal canal or neural foraminal stenosis . L4-5: There is a diffuse disc bulge. There are degenerative changes of the facets. There is mild na rrowing of the central spinal canal. No significant neural foraminal stenosis is seen. L5-S1: No disc herniations or bulges are present. No central spinal canal or neural foraminal stenosi s. Soft tissues: The visualized SI joints and sacrum are well maintained. The paraspinal soft tissues ar e unremarkable. IMPRESSION: At L4-L5 there is a diffuse disc bulge and facet arthropathy which all contribute to cause mild narro wing of the central spinal canal. DATA REPOSITORY:
== END 2024-12-05 04:12 ==
LOC: DI 03:52
PROVIDERS: PCP Family Medicine; Visit Provider Family Medicine
DX: M51.17 Intervertebral disc disorders with radiculopathy, lumbosacral region (principal)
CPT/HCPCS: 72148

== ENCOUNTER 2025-03-27 02:35 | Outpatient (CLI) | payer MEDICAID, SELFPAY ==
--- NOTE | 2025-03-27 13:01 | DI.MAMMO_ITS ---
Exam(s) MAMMO SCREENING EXAM: MAMMO SCREENING CLINICAL HISTORY: screening,z12.39,h/o small cystic areas of rt breast TECHNIQUE: Bilateral full field digital CC and MLO mammographic images were obtained with 3D tomosyn thesis and utilizing computer aided detection (CAD). COMPARISON: Available for comparison. FINDINGS: Masses/Architectural Distortion: There are stable nodular densities seen in the medial right breast. No suspicious nodules or areas of architectural distortion are present. Microcalcifications: No suspicious pleomorphic-type are seen. Skin Thickening/Nipple Retraction: None. IMPRESSION: 1. No significant interval change with no specific features of malignancy noted. 2. Unless there is more urgent need, screening mammography is recommended, as per [employer] guidelines. BI-RADS Category 2 - Benign Findings Breast Density - Category B-there are scattered areas of fibroglandular density Breast density category C or D implies that the patient has dense breast tissue. Dense breast tissue is very common and is not abnormal but dense breast tissue can make it harder to find cancer on a ma mmogram. Also, dense breast tissue may increase their breast cancer risk. This information about the result of the mammogram report was provided to the patient to raise their awareness. Use this report when you speak with the patient about their risks for breast cancer, which includes their family hist ory. At that time, you may recommend for more screening tests (Ultrasound or MRI) as they might be us eful based on their risk. A negative radiographic report should not delay biopsy if a dominant or clinically suspicious mass is present. Up to ten percent of cancers are not identified on mammography. A negative report may reinforce clinical impression. Adenosis and dense breasts may obscure an underlying neoplasm. False positive reports average 6 to 10%. Patient will receive a letter notifying them of these results.
== END 2025-03-27 02:55 ==
LOC: DI 02:36
PROVIDERS: PCP Family Medicine; Visit Provider Family Medicine
DX: Z12.31 Encounter for screening mammogram for malignant neoplasm of breast (principal); R92.323 Mammographic fibroglandular density, bilateral breasts; D24.1 Benign neoplasm of right breast
CPT/HCPCS: 77063; 77067

== ENCOUNTER 2025-04-03 01:42 | Outpatient (CLI) | payer MEDICAID, SELFPAY ==
[2025-04-03 13:16] LABS: Calculated LDL 108 mg/dL (<100); Cholesterol 192 mg/dL (<200); HDL Cholesterol 63 mg/dL (>or=50); TSH (W/Ref FT4) 0.12 uIU/mL (0.36-3.74); Triglyceride 108 mg/dL (<150)
[2025-04-03 13:33] LABS: FREE T4 1.44 ng/dL (0.76-1.46)
[2025-04-04 10:08] LABS: HBs Antibody, Quant <3.1 mIU/mL (See Note); Hep B Surface Ab Negative (See Note); Hepatitis B Core Antibody Negative (Negative); Hepatitis B Surface Antigen Negative (Negative)
[2025-04-04 10:27] LABS: Hepatitis C Ab w Rflx HCV PCR Negative (Negative)
[2025-04-04 10:35] LABS: HIV-1/2 Ag & Ab Screen Negative (Negative)
== END 2025-04-03 01:43 | disposition home or self-care (01) ==
LOC: LBO 01:43
PROVIDERS: PCP Family Medicine; Visit Provider Family Medicine
DX: E78.5 Hyperlipidemia, unspecified (principal); Z11.59 Encounter for screening for other viral diseases; E03.9 Hypothyroidism, unspecified; Z00.00 Encounter for general adult medical examination without abnormal findings
CPT/HCPCS: 36415; 80061; 86704; 86706; 86803; 87340; 87389; 84439; 84443

== ENCOUNTER 2025-05-29 11:36 | Outpatient (REF) | payer MEDICAID, SELFPAY ==
[2025-05-30 13:05] LABS: Chlamydia Result Negative (Negative); GC Result Negative (Negative)
== END 2025-05-29 11:37 | disposition home or self-care (01) ==
LOC: LBN 11:36
PROVIDERS: PCP Family Medicine; Visit Provider Obstetrics & Gynecology
DX: N93.9 Abnormal uterine and vaginal bleeding, unspecified (principal); N89.8 Other specified noninflammatory disorders of vagina
CPT/HCPCS: 87491; 87591; 87480; 87510; 87660

== ENCOUNTER 2025-06-19 01:22 | Outpatient (CLI) | payer MEDICAID, SELFPAY ==
--- NOTE | 2025-06-19 11:50 | DI.US_ITS ---
Exam(s) US PELVIS TRANSVAGINAL EXAM: US PELVIS TRANSVAGINAL CLINICAL HISTORY: abnormal uterine bleeding,N93.9 TECHNIQUE: Transabdominal and transvaginal imaging was performed using standard protocol. COMPARISON: US US ABD PELV TRANSVAG NON-OB from 05/28/2024 FINDINGS: He transabdominal images are limited by lack of urinary bladder distention and patient body habitus. UTERUS: Anteverted. 9.3 x 5.1 x 5.3 cm Endometrium: 6 mm Myometrium: Heterogeneous. No discrete fibroids identified Cervix: Unremarkable. OVARIES: Right: Status post right oophorectomy Left: Cyst or mass: None. DOPPLER: Color: Symmetric and uniform flow to both ovaries. No hyperemia. CUL-DE-SAC: Free fluid: None. IMPRESSION: 1. Heterogeneous myometrium. No discrete fibroids are identified. The endometrium is unremarkable.. 2. Right oophorectomy. The left ovary is unremarkable. DATA REPOSITORY:
== END 2025-06-19 01:42 ==
LOC: DI 01:22
PROVIDERS: PCP Family Medicine; Visit Provider Obstetrics & Gynecology
DX: N93.9 Abnormal uterine and vaginal bleeding, unspecified (principal); Z90.721 Acquired absence of ovaries, unilateral; N85.8 Other specified noninflammatory disorders of uterus
CPT/HCPCS: 76830; 76856

== ENCOUNTER 2025-09-11 10:02 | Outpatient (CLI) | payer SELFPAY ==
--- NOTE | 2025-09-11 10:00 | RT.EKG_ITS ---
APPROVED REPORT Exam: Resting ECG Reason for Exam: chest discomfort Patient Location: O HR:63 bpm ECG Measurements Heart Rate 63 AXIS KS 148 P 56 QRSd 91 QRS 33 QT 412 T 47 QTc 422 Conclusion Sinus rhythm...normal P axis, V-rate 50- 99 Some motion artifact Otherwise normal
== END 2025-09-11 10:03 | disposition home or self-care (01) ==
LOC: DI.CM 10:03
PROVIDERS: PCP Family Medicine; Visit Provider Nurse Practitioner Family
DX: R07.89 Other chest pain (principal)
CPT/HCPCS: 93010

== ENCOUNTER 2025-09-11 10:24 | Emergency (ER) | payer SELFPAY ==
[2025-09-11] VITALS (20 sets, daily range): BP systolic 115–128; BP diastolic 47–79; PULSE 45–79; RESP 9–26; TEMP 36.6; O2SAT 90–99
--- NOTE | 2025-09-11 10:30 | RT.EKG_ITS ---
APPROVED REPORT Exam: Resting ECG Reason for Exam: chest pain Patient Location: E HR:60 bpm ECG Measurements Heart Rate 60 AXIS ME 161 P 65 QRSd 91 QRS 68 QT 426 T 46 QTc 427 Conclusion Sinus rhythm...normal P axis, V-rate 60- 99 Low voltage, precordial leads...precordial leads <1.0mV No Occlusion IA
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
[2025-09-11 11:25] LABS: Abs Immature Grans 0.01 10^3/uL (0.0-0.06); HCT 37.1 % (36.0-46.0); HGB 12.8 g/dL (11.2-15.7); Immature Grans % 0.2 %; MCH 31.1 pg (27.0-33.0); MCHC 34.5 % (32.0-36.0); MCV 90 fL (80-95); MPV 9.6 fL (8.0-11.0); Platelet Count 277 10^3/uL (130-400); RBC 4.12 10^6/uL (3.93-5.22); RDW 11.9 % (11.7-14.6); RDW-SD 39.0 fL; WBC 6.61 10^3/uL (4.4-10.8)
[2025-09-11 11:51] LABS: D-Dimer 289 ng/mlFEU (<500)
[2025-09-11 11:56] LABS: Anion Gap 7.8 mmol/L (3-11); BUN 11 mg/dL (7-18); CO2 28.2 mmol/L (21.0-32.0); Calcium 8.8 mg/dL (8.5-10.1); Chloride 105 mmol/L (98-107); Creatine Kinase 132 U/L (26-192); Estimated GFR 91.40 (mL/min/1.73m2); Glucose 97 mg/dL (74-106); Potassium 4.0 mmol/L (3.5-5.1); Sodium 141 mmol/L (136-145); TSH (W/Ref FT4) 0.01 uIU/mL (0.36-3.74); Troponin I < 4 ng/L (<or=51)
--- NOTE | 2025-09-11 12:03 | DI.CT_ITS ---
Exam(s) CT NECK W EXAM: CT NECK W CLINICAL HISTORY: Left-sided neck mass. TECHNIQUE: Imaging Protocol: Axial computed tomography images with coronal and sagittal reformatted images were created and reviewed CONTRAST MATERIAL: Intravenous: Omnipaque 350 Contrast volume:100 ml contrast COMPARISON: CT CHEST FOR PULMONARY EMBOLUS from 05/13/2018 FINDINGS: Parotids: Normal. Submandibular glands: Normal. Thyroid gland: Normal. Lymph nodes: Posterior to the area marked, there is an 11 millimeter lymph node which could correspond to the palpable abnormality. There are no abnormal features. Other scattered small lymph nodes are also seen on both sides of the neck. Carotids arteries: No significant stenosis or dissection. Vertebral arteries: No significant stenosis or dissection. Soft tissues: The floor the mouth is unremarkable. The tonsils and adenoids are unremarkable. The epiglottis and vocal cords are within normal limits. Lungs: Images respiratory motion. Bones: Degenerative changes of the cervical spine. Visualized portions of the brain and orbits: Unremarkable. Sinuses and mastoids: Clear. IMPRESSION: Palpable abnormality may correspond to normal appearing cervical lymph node. No suspicious masses are seen. RADIATION DOSE DELIVERED: 500.44mGy.cm Total DLP DATA REPOSITORY: All CT scans at this facility are submitted to the National Radiology Data Registry (NRDR) Dose Index Registry (DIR) with the [employer] (A[employer]). RADIATION OPTIMIZATION: All CT scans at this facility use at least one of these dose optimization techniques: automated exposure control; mA and/or kV adjustment per patient size (includes targeted exams where dose is matched to clinical indication); or iterative reconstruction.
[2025-09-11] MEDS: Normal Saline - Diluent 50 ML VIAL IJ (12:27)
[2025-09-11] MEDS: Normal Saline Flush 10 ML SYR IVP (12:27)
[2025-09-11] MEDS: Omnipaque 350 MG/ML 100 ML BTL IJ (12:27)
[2025-09-11 12:32] LABS: Lab Add On Test DONE
[2025-09-11 12:46] LABS: ALT 32 U/L (14-59); AST 20 U/L (15-37); Albumin 3.6 g/dL (3.4-5.0); Alkaline Phosphatase 62 U/L (46-116); Bilirubin, Direct 0.1 mg/dL (0.0-0.2); Bilirubin, Total 0.5 mg/dL (0.2-1.0); Total Protein 7.0 g/dL (6.4-8.2)
[2025-09-11 13:05] LABS: HCG Quant, Pregnancy 3 mIU/mL (1-3)
== END 2025-09-11 13:34 | disposition home or self-care (01) ==
PROVIDERS: Emergency Provider Emergency Medicine; PCP Family Medicine
DX: E05.90 Thyrotoxicosis, unspecified without thyrotoxic crisis or storm (principal)
CPT/HCPCS: 99285; 99284; 36415; 70491; 80048; 80076; 82550; 93005; 84439; 84443; 84484; 84702; 85025; 85379; 93010; J3490

== ENCOUNTER 2025-10-01 19:15 | Emergency (ER) | payer SELFPAY ==
[2025-10-01] VITALS (8 sets, daily range): BP systolic 104–163; BP diastolic 51–97; PULSE 80–117; RESP 18; TEMP 36.6; O2SAT 93–97
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
--- NOTE | 2025-10-01 19:45 | RT.EKG_ITS ---
APPROVED REPORT Exam: Resting ECG Reason for Exam: shortness of breath Patient Location: E HR:87 bpm ECG Measurements Heart Rate 87 AXIS ID 146 P 52 QRSd 89 QRS 22 QT 362 T 23 QTc 436 Conclusion Sinus rhythm...normal P axis, V-rate 60- 99
--- NOTE | 2025-10-01 19:45 | DI.CT_ITS ---
Exam(s) CT ABDOMEN PELVIS W EXAM: CT ABDOMEN PELVIS W CLINICAL HISTORY: diffuse lower ABD pain; diarrhea TECHNIQUE: Imaging Protocol: Axial computed tomography images with coronal and sagittal reformatted images were created and reviewed. CONTRAST MATERIAL: Intravenous: Omnipaque 350 Contrast volume:100 mL Oral: No COMPARISON: CT CHEST WITH CONTRAST from 11/23/2015 CT ABD PELVIS WITH CONTRAST from 09/02/[address] ABDOMEN PELVIS W from 08/04/2023 CT,NM,TMT NM MPI REST STRESS GRP from 11/11/2024 FINDINGS: ABDOMEN: Lung Bases: There is a stable nodule in the right lower lobe. No follow-up is recommended. The lung bases are otherwise clear. Liver: There is decreased attenuation of the liver suggesting fatty infiltration. No measurable mass. Portal, Superior Mesenteric, and Splenic Veins: Unremarkable. Gallbladder and Biliary Tract: Status post cholecystectomy. There is no significant biliary ductal dilatation. Pancreas: Normal density, no abnormal calcifications or inflammatory process. Spleen: Normal. Adrenals: No masses seen. Kidneys: Normal size, contour and axis. No radiodense stones or obstructive uropathy. No masses seen. Abdominal Aorta: Abdominal portion non-dilated. Atherosclerotic calcification is present. Bowel: There are few diverticula seen in the colon, but no evidence of acute diverticulitis. There is no bowel wall thickening or obstruction. There are surgical clips in the right lower quadrant suggesting prior appendectomy. The stomach is incompletely distended limiting evaluation. Peritoneal Cavity: No ascites, collection or mesenteric inflammatory response. No free air. Lymph Nodes: Within normal limits. Bones: Within normal limits for the patient's age. Posterior spinal surgery is seen at L5-S1. Soft Tissues: Unremarkable. PELVIS: Bladder: The urinary bladder is incompletely distended limiting evaluation. No gross abnormality is identified. Reproductive Organs: Unremarkable as visualized. Lymph Nodes: Within normal limits. Bones: Within normal limits for the patient's age. IMPRESSION: 1. No acute abdominal or pelvic process. 2. The preliminary [facility] report was reviewed. RADIATION DOSE DELIVERED: 1,225.16mGy.cm Total DLP DATA REPOSITORY: All CT scans at this facility are submitted to the National Radiology Data Registry (NRDR) Dose Index Registry (DIR) with the [employer] ([employer]). RADIATION OPTIMIZATION: All CT scans at this facility use at least one of these dose optimization techniques: automated exposure control; mA and/or kV adjustment per patient size (includes targeted exams where dose is matched to clinical indication); or iterative reconstruction.
[2025-10-01 20:04] LABS: Abs Immature Grans 0.04 10^3/uL (0.0-0.06); HCT 39.8 % (36.0-46.0); HGB 13.7 g/dL (11.2-15.7); Immature Grans % 0.3 %; MCH 31.1 pg (27.0-33.0); MCHC 34.4 % (32.0-36.0); MCV 90 fL (80-95); MPV 9.6 fL (8.0-11.0); Platelet Count 316 10^3/uL (130-400); RBC 4.41 10^6/uL (3.93-5.22); RDW 12.1 % (11.7-14.6); RDW-SD 39.9 fL; WBC 13.05 10^3/uL (4.4-10.8)
[2025-10-01 20:12] LABS: Glucose Negative (Negative)
[2025-10-01] MEDS: Normal Saline 1,000 ML 1000 ML IV (20:16)
[2025-10-01] MEDS: ACETAMINOPHEN 1,000 MG/100 ML BAG 400 MG IVPB (20:16)
[2025-10-01 20:24] LABS: ALT 35 U/L (14-59); AST 23 U/L (15-37); Albumin 4.0 g/dL (3.4-5.0); Alkaline Phosphatase 66 U/L (46-116); Anion Gap 13.0 mmol/L (3-11); BUN 10 mg/dL (7-18); Bilirubin, Total 0.8 mg/dL (0.2-1.0); CO2 23.0 mmol/L (21.0-32.0); Calcium 8.9 mg/dL (8.5-10.1); Chloride 103 mmol/L (98-107); Glucose 153 mg/dL (74-106); Lipase 17 U/L (<78); Magnesium 1.7 mg/dL (1.8-2.4); Potassium 3.3 mmol/L (3.5-5.1); Sodium 139 mmol/L (136-145); TSH (W/Ref FT4) 0.10 uIU/mL (0.36-3.74); Total Protein 7.9 g/dL (6.4-8.2)
[2025-10-01 20:24] LABS: C & S Indicated? No; RBC Negative HPF (0-2); WBC 0-2 HPF (0-5)
[2025-10-01 20:26] LABS: Troponin I < 4 ng/L (<or=51)
[2025-10-01] MEDS: Normal Saline Flush 10 ML SYR IVP (20:34)
[2025-10-01] MEDS: Normal Saline - Diluent 50 ML VIAL IJ (20:35)
[2025-10-01] MEDS: Omnipaque 350 MG/ML 100 ML BTL IJ (20:36)
--- NOTE | 2025-10-01 20:46 | DI.RAD_ITS ---
Exam(s) XR CHEST 2V PA LATERAL EXAM: XR CHEST 2V PA LATERAL CLINICAL HISTORY: cough TECHNIQUE: 2D digital imaging was performed of the chest. Two images were obtained. PA and lateral views were obtained. COMPARISON: CR CHEST 2 VIEWS PA,LAT from 11/09/2015 CR CHEST 2 VIEWS PA,LAT from 05/13/2018 FINDINGS: MEDIASTINUM: Normal. HEART: Normal. PULMONARY VASCULATURE: Normal. LUNGS: Clear. PLEURAL SPACE: No pleural effusion or pneumothorax. BONE:Within normal limits for the patient's age. OTHER FINDINGS:Normal. IMPRESSION: 1. No acute pulmonary findings. 2. The preliminary [facility] report was reviewed. DATA REPOSITORY: RADIATION DOSE DELIVERED:
[2025-10-01 20:55] LABS: RSV PCR Negative (Negative)
[2025-10-01 20:58] LABS: COVID-19 PCR Positive (Negative)
--- NOTE | 2025-10-01 20:59 | DI.VRAD_ITS ---
PROCEDURE INFORMATION: Exam: CT Abdomen And Pelvis With Contrast Exam date and time: 10/01/2025 8:32 PM Age: 45 years old Clinical indication: Other: Diarrhea; Other: Diffuse lower abd pain; Additional info: Diffuse lower abd pain; Diarrhea TECHNIQUE: Imaging protocol: Computed tomography of the abdomen and pelvis with contrast. Contrast material: OMNI 350; Contrast volume: 100 ml; Contrast route: INTRAVENOUS (IV); COMPARISON: CT ABDOMEN PELVIS W 08/04/2023 8:52 PM FINDINGS: Lungs: Linear bibasilar opacities most consistent with subsegmental atelectasis. Liver: There is a diffuse decrease in hepatic parenchymal density, consistent with fatty infiltration. Gallbladder and biliary ducts: Post cholecystectomy. Pancreas: The pancreas is unremarkable. Spleen: No splenomegaly. No lesions. Adrenal glands: The adrenal glands are unremarkable. Kidneys and ureters: The kidneys are normal. Stomach and bowel: No evidence of bowel obstruction. No pericolonic inflammatory stranding. Appendix: There has been an appendectomy. Intraperitoneal space: Unremarkable. No free air. No significant fluid collection. Vasculature: Patent vessels without evidence of aneurysm, dissection, occlusion or critical stenosis. Lymph nodes: Unremarkable. No enlarged lymph nodes. Urinary bladder: No focal wall thickening of the urinary bladder. Reproductive: The uterus is unremarkable. Bones/joints: Posterior fusion at L5/S1. Soft tissues: Small fat containing umbilical hernia. Soft tissues are unremarkable as visualized. IMPRESSION: No acute findings. Chronic noncritical findings as described above. Dictated and Authenticated by: Swetha Arambula MD. Orderin Phyllis Trivedi MD
--- NOTE | 2025-10-01 20:59 | DI.VRAD_ITS ---
PROCEDURE INFORMATION: Exam: XR Chest Exam date and time: 10/01/2025 8:41 PM Age: 45 years old Clinical indication: Cough TECHNIQUE: Imaging protocol: Radiologic exam of the chest. Views: 2 views. COMPARISON: CT ABDOMEN PELVIS W 10/01/2025 8:32 PM FINDINGS: Lungs: Unremarkable. No consolidation. Pleural spaces: Unremarkable. No pleural effusion. No pneumothorax. Heart/Mediastinum: Unremarkable. No cardiomegaly. Bones/joints: Unremarkable. IMPRESSION: No acute findings. Dictated and Authenticated by: Swetha Arambula MD. Orderin Phyllis Trivedi MD
[2025-10-01] MEDS: Albuterol HFA 8 GM 60 PUFF INH IH (22:06)
== END 2025-10-01 22:16 | disposition home or self-care (01) ==
PROVIDERS: Emergency Provider Physician Assistant; PCP Family Medicine
DX: U07.1 COVID-19 (principal); Z11.52 Encounter for screening for COVID-19; R10.30 Lower abdominal pain, unspecified; R42 Dizziness and giddiness; Z59.10 Inadequate housing, unspecified; Z59.87 Material hardship due to limited financial resources, not elsewhere classified
CPT/HCPCS: 36415; 80053; 83690; 87040; 87637; 93005; 96361; 96374; 99285; 71046; 74177; 81003; 81015; 83605; 83735; 84439; 84443; 84484; 85025; 93010; 99284; J0131; J3490

== ENCOUNTER 2025-11-11 08:39 | Emergency (ER) | payer SELFPAY ==
[2025-11-11 08:47] VITALS: BP 120/86; PULSE 74; RESP 18; TEMP 36.6; O2SAT 96
[2025-11-11 08:50] VITALS: BP 120/86; PULSE 74; RESP 18; TEMP 36.6; O2SAT 96
[2025-11-11 09:15] LABS: Glucose 100 mg/dL (Negative)
[2025-11-11 09:16] LABS: C & S Indicated? Yes; RBC >50 HPF (0-2)
--- NOTE | 2025-11-11 09:30 | DI.US_ITS ---
Exam(s) US RENAL EXAM: US RENAL CLINICAL HISTORY: gross hematuria, recent ct abd pelvis. TECHNIQUE: Avila scale, color and spectral Doppler were used. COMPARISON: CT CT ABDOMEN PELVIS W from 10/01/2025 FINDINGS: Renal size in cm: Right: 11.4. Left: 11.4. Echogenicity: Normal. Hydronephrosis: No. Cyst or mass: No. Nephrolithiasis: No. Other findings: None. Bladder:The urinary bladder was incompletely distended limiting evaluation. Ureteral jets: Right: Visualized and unremarkable. Left: Visualized and unremarkable. Prevoid vol:23 cc Renal color flow: Symmetric and within normal limits. IMPRESSION: 1. There is no evidence of nephrolithiasis or hydronephrosis. 2. The urinary bladder was incompletely distended limiting evaluation. No gross abnormalities identified. DATA REPOSITORY:
[2025-11-11] MEDS: Phenazopyridine 200 MG TAB PO (09:50)
[2025-11-11 10:22] LABS: Abs Immature Grans 0.04 10^3/uL (0.0-0.06); HCT 37.4 % (36.0-46.0); HGB 12.7 g/dL (11.2-15.7); Immature Grans % 0.4 %; MCH 31.3 pg (27.0-33.0); MCHC 34.0 % (32.0-36.0); MCV 92 fL (80-95); MPV 10.0 fL (8.0-11.0); Platelet Count 278 10^3/uL (130-400); RBC 4.06 10^6/uL (3.93-5.22); RDW 12.5 % (11.7-14.6); RDW-SD 41.8 fL; WBC 10.72 10^3/uL (4.4-10.8)
[2025-11-11 10:54] LABS: ALT 24 U/L (10-49); AST 23 U/L (<34); Albumin 4.3 g/dL (3.2-5.0); Alkaline Phosphatase 66 U/L (46-116); Anion Gap 8 mmol/L (3-11); BUN 14 mg/dL (9-23); Bilirubin, Total 0.6 mg/dL (0.2-1.2); CO2 25.0 mmol/L (20.0-31.0); Calcium 8.9 mg/dL (8.3-10.6); Chloride 110 mmol/L (98-107); Glucose 97 mg/dL (74-106); Potassium 4.0 mmol/L (3.5-5.1); Sodium 143 mmol/L (136-145); Total Protein 7.0 g/dL (5.7-8.2)
[2025-11-11 11:44] VITALS: BP 115/53; PULSE 58; O2SAT 98
[2025-11-11] MEDS: Cefuroxime 500 MG TAB PO (11:48)
--- NOTE | 2025-11-11 15:28 | NUR.NOTE ---
Patient called asking about labs that were not complete when she left. I reviewed them witshabana Sterling RN and told her that the vaginal pathogen was all negative but the GC/chlam would be back in 3 to 5 working days. She will call back for the results. Nursing Note:
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
[2025-11-13 14:12] LABS: Chlamydia Result Invalid (Negative); GC Result Invalid (Negative)
== END 2025-11-11 14:29 | disposition home or self-care (01) ==
PROVIDERS: Emergency Provider Physician Assistant; PCP Family Medicine
DX: R30.0 Dysuria (principal); R31.9 Hematuria, unspecified
CPT/HCPCS: 99283 ×2; 36415; 81025; 76770; 80053; 87077; 87491; 87591; 81003; 81015; 85025; 87086; 87186; 87480; 87510; 87660